=== PATIENT | male | born 1965 | race Caucasian/White ===

== ENCOUNTER 2017-07-28 11:35 | Inpatient (IN) ==
[2017-07-28] MEDS ORDERED: SODIUM CHLORIDE 0.9% 1,000 ML IV STA (13:38)
[2017-07-28] MEDS ORDERED: PANTOPRAZOLE 40 MG VIAL IV STA (13:38)
[2017-07-28 14:42] LABS: Basophils % 0.1 % (0.0-0.8); Immature Granulocytes % 0.9 %; Immature Granulocytes Absolute 0.13 #; Lymphocytes # 1.8 10*3/uL (1.4-4.0); Lymphocytes % 13.4 % (21.2-54.2); Mean Corpuscular HGB Conc 31.5 GM/DL (32-36); Mean Corpuscular Hemoglobin 28 PG (27-34); Mean Corpuscular Volume 88.8 FL (87-102); Mean Platelet Volume 9.8 FL (9.6-12.0); Monocytes # 0.9 10*3/uL (0.11-0.8); Monocytes % 6.9 % (1.7-12.7); Neutrophils # 10.8 10*3/uL (1.4-7.4); Neutrophils % 78.7 % (38.7-73.9); Platelet Count 639 T/CUMM (130-400); Red Blood Count 1.61 MC/CUMM (3.8-5.5); Red Cell Distribution Width 16.8 % (9.3-17.3); White Blood Count 13.7 T/CUMM (4-12)
[2017-07-28 14:48] LABS: Hematocrit 14.3 VOL% (42.0-52.0); Hemoglobin 4.5 GM/DL (14.0-18.0)
[2017-07-28] MEDS ORDERED: SODIUM CHLORIDE 0.9% 1,000 ML IV PRN (14:50)
[2017-07-28 15:02] LABS: PT Patient Result 10.7 SECS
[2017-07-28 15:04] LABS: Alanine Aminotransferase 9 U/L (16-61); Albumin 2.2 G/DL (3.4-5.0); Alkaline Phosphatase 55 U/L (45-117); Aspartate Amino Transferase 7 U/L (0-37); Bilirubin,Total < 0.39 MG/DL (0.2-1.0); Blood Urea Nitrogen 26 MG/DL (7-18); Calcium 8.1 MG/DL (8.5-10.1); Glucose 153 MG/DL (74-106); Potassium 4.6 MMOL/L (3.5-5.1); Sodium 136 MMOL/L (136-145)
[2017-07-28] MEDS ORDERED: PANTOPRAZOLE 40 MG VIAL IV ONE (16:07)
[2017-07-28] MEDS ORDERED: ONDANSETRON 4 MG/2 ML VIAL IV PRN (16:11)
[2017-07-28] MEDS ORDERED: DEXTROSE 50% 25 GM/50 ML VIAL IV PRN (16:16)
[2017-07-28] MEDS ORDERED: GLUCAGON 1 MG VIAL IM PRN (16:16)
[2017-07-28] MEDS: SODIUM CHLORIDE 0.9% 1,000 ML IV SCH ×2 (16:59→19:20)
[2017-07-28] MEDS ORDERED: PNEUMOCOCCAL VACCINE (23 VALENT) 0.5 ML VIAL IM ONE (17:16)
[2017-07-28] MEDS ORDERED: INFLUENZA VIRUS VACCINE 0.5 ML SYRINGE IM ONE (17:16)
[2017-07-28] MEDS: NICOTINE 21 MG/24 HR PATCH TRANSDERM SCH (17:22)
[2017-07-28] MEDS: MORPHINE 2 MG/1 ML SYRINGE IV PRN ×2 (17:23→21:30)
[2017-07-28] MEDS: PANTOPRAZOLE INJ 200 MG in SODIUM CHLORIDE 0.9% 250 ML IV SCH (17:24)
[2017-07-28] MEDS: INSULIN REGULAR 100 UNIT/ML SUBCUT SCH ×2 (19:59→23:42)
[2017-07-28] MEDS ORDERED: KETOROLAC 15 MG/1 ML VIAL IM PRN (20:02)
[2017-07-28] MEDS ORDERED: ACETAMINOPHEN 650 MG SUPP RECTAL PRN (20:04)
[2017-07-29 01:51] LABS: Hemoglobin 5.7 GM/DL (14.0-18.0)
[2017-07-29 01:52] LABS: Hematocrit 17.6 VOL% (42.0-52.0)
[2017-07-29 01:53] LABS: Hematocrit 17.6 VOL% (42.0-52.0); Hemoglobin 5.7 GM/DL (14.0-18.0)
[2017-07-29] MEDS: MORPHINE 2 MG/1 ML SYRINGE IV PRN ×2 (02:08→06:17)
[2017-07-29 03:00] LABS: Hematocrit 20.2 VOL% (42.0-52.0); Hemoglobin 6.7 GM/DL (14.0-18.0)
[2017-07-29] MEDS: SODIUM CHLORIDE 0.9% 1,000 ML IV SCH ×3 (03:30→19:30)
[2017-07-29] MEDS: INSULIN REGULAR 100 UNIT/ML SUBCUT SCH ×4 (06:12→23:16)
[2017-07-29 08:18] LABS: Hematocrit 20.5 VOL% (42.0-52.0); Hemoglobin 6.8 GM/DL (14.0-18.0)
[2017-07-29] MEDS: NICOTINE 21 MG/24 HR PATCH TRANSDERM SCH (10:11)
[2017-07-29] MEDS: MORPHINE 10 MG/1 ML VIAL IV PRN ×3 (10:33→21:01)
[2017-07-29] MEDS: LORazepam 2 MG/1 ML VIAL IV PRN ×2 (11:01→21:02)
[2017-07-29 15:36] LABS: Hematocrit 22.5 VOL% (42.0-52.0); Hemoglobin 7.3 GM/DL (14.0-18.0)
[2017-07-30 00:15] LABS: Hematocrit 20.3 VOL% (42.0-52.0); Hemoglobin 6.7 GM/DL (14.0-18.0)
[2017-07-30] MEDS: MORPHINE 10 MG/1 ML VIAL IV PRN ×4 (01:39→18:07)
[2017-07-30] MEDS: PANTOPRAZOLE INJ 200 MG in SODIUM CHLORIDE 0.9% 250 ML IV SCH (02:40)
[2017-07-30] MEDS: SODIUM CHLORIDE 0.9% 1,000 ML IV SCH ×2 (03:40→13:56)
[2017-07-30] MEDS: INSULIN REGULAR 100 UNIT/ML SUBCUT SCH ×3 (06:24→18:23)
[2017-07-30 07:46] LABS: Hematocrit 21.9 VOL% (42.0-52.0); Hemoglobin 7.2 GM/DL (14.0-18.0)
[2017-07-30 08:05] LABS: Calcium 7.5 MG/DL (8.5-10.1); Osmolality,Calculated 278.5 MOS/KG (273-304); Potassium 3.9 MMOL/L (3.5-5.1)
[2017-07-30] MEDS: NICOTINE 21 MG/24 HR PATCH TRANSDERM SCH (08:57)
[2017-07-30] MEDS: LORazepam 2 MG/1 ML VIAL IV PRN ×3 (08:58→22:06)
[2017-07-30] MEDS ORDERED: SODIUM CHLORIDE 0.9% 1,000 ML IV SCH (10:30)
[2017-07-30] MEDS ORDERED: ETOMIDATE 20 MG/10 ML VIAL IV ONE (12:00)
[2017-07-30] MEDS ORDERED: LIDOCAINE 2% 5 ML VIAL ONE (12:00)
[2017-07-30 13:41] LABS: Basophils % 0.4 % (0.0-0.8); Hematocrit 23.3 VOL% (42.0-52.0); Hemoglobin 7.6 GM/DL (14.0-18.0); Immature Granulocytes % 0.7 %; Immature Granulocytes Absolute 0.08 #; Lymphocytes # 1.4 10*3/uL (1.4-4.0); Lymphocytes % 12.7 % (21.2-54.2); Mean Corpuscular HGB Conc 32.6 GM/DL (32-36); Mean Corpuscular Hemoglobin 29 PG (27-34); Mean Corpuscular Volume 89.6 FL (87-102); Mean Platelet Volume 9.8 FL (9.6-12.0); Monocytes # 1.1 10*3/uL (0.11-0.8); Monocytes % 10.2 % (1.7-12.7); Neutrophils # 8.4 10*3/uL (1.4-7.4); Platelet Count 415 T/CUMM (130-400); Red Cell Distribution Width 15.6 % (9.3-17.3)
[2017-07-30] MEDS: PANTOPRAZOLE 40 MG VIAL IV SCH (20:46)
[2017-07-30 22:22] LABS: Hematocrit 27.9 VOL% (42.0-52.0)
[2017-07-30 22:23] LABS: Hemoglobin 8.9 GM/DL (14.0-18.0)
[2017-07-31] MEDS: INSULIN REGULAR 100 UNIT/ML SUBCUT SCH ×5 (00:25→23:16)
[2017-07-31] MEDS: MORPHINE 10 MG/1 ML VIAL IV PRN ×2 (02:30→08:02)
[2017-07-31] MEDS: PANTOPRAZOLE 40 MG VIAL IV SCH ×2 (08:04→21:48)
[2017-07-31] MEDS: NICOTINE 21 MG/24 HR PATCH TRANSDERM SCH (08:13)
[2017-07-31] MEDS: PREGABALIN 75 MG CAPSULE PO SCH ×2 (09:48→21:48)
[2017-07-31 10:04] LABS: Hematocrit 25.3 VOL% (42.0-52.0); Hemoglobin 8.4 GM/DL (14.0-18.0)
[2017-07-31] MEDS: traMADol 50 MG TABLET PO PRN (15:14)
[2017-07-31 15:17] LABS: Hematocrit 26.8 VOL% (42.0-52.0); Hemoglobin 8.5 GM/DL (14.0-18.0)
[2017-07-31] MEDS: LORazepam 0.5 MG TABLET PO PRN (21:48)
[2017-08-01 08:05] LABS: Hematocrit 22.6 VOL% (42.0-52.0); Hemoglobin 7.5 GM/DL (14.0-18.0)
[2017-08-01] MEDS: LORazepam 0.5 MG TABLET PO PRN ×2 (08:43→20:51)
[2017-08-01] MEDS: PREGABALIN 75 MG CAPSULE PO SCH ×2 (08:43→20:51)
[2017-08-01] MEDS: PANTOPRAZOLE 40 MG VIAL IV SCH ×2 (08:43→20:52)
[2017-08-01] MEDS: NICOTINE 21 MG/24 HR PATCH TRANSDERM SCH (08:44)
[2017-08-01] MEDS: INSULIN REGULAR 100 UNIT/ML SUBCUT SCH ×3 (08:47→18:49)
[2017-08-01] MEDS ORDERED: SODIUM CHLORIDE 0.9% 1,000 ML IV PRN (09:43)
[2017-08-01] MEDS: traMADol 50 MG TABLET PO PRN (14:46)
[2017-08-01 16:13] LABS: Hemoglobin 8.2 GM/DL (14.0-18.0)
[2017-08-02] MEDS: INSULIN REGULAR 100 UNIT/ML SUBCUT SCH ×3 (01:36→12:21)
[2017-08-02 05:33] LABS: Hematocrit 24.9 VOL% (42.0-52.0); Hemoglobin 7.9 GM/DL (14.0-18.0)
[2017-08-02] MEDS: PANTOPRAZOLE 40 MG VIAL IV SCH (09:17)
[2017-08-02] MEDS: NICOTINE 21 MG/24 HR PATCH TRANSDERM SCH (09:17)
[2017-08-02] MEDS ORDERED: PROPOFOL 200 MG/20 ML VIAL IV ONE (11:05)
[2017-08-02] MEDS ORDERED: LIDOCAINE 2% 5 ML VIAL ONE (11:05)
[2017-08-02] MEDS: PREGABALIN 75 MG CAPSULE PO SCH (12:14)
[2017-08-02] MEDS: LORazepam 0.5 MG TABLET PO PRN (12:15)
[2017-08-02 12:23] VITALS: BP 127/78
== END 2017-08-02 15:30 | disposition home or self-care (01) | DRG 378 ==
LOC: N.ED 11:35 → SUATTDRO 15:15 → N.EDINP 15:15 → N.CC 16:27 → N.2E 07-31 14:36
PROVIDERS: ADMIT Hospitalist; ATTEND Internal Medicine

== ENCOUNTER 2017-08-11 17:08 | Inpatient (IN) ==
[2017-08-11 18:25] LABS: Basophils % 0.2 % (0.0-0.8); Hematocrit 29.3 VOL% (42.0-52.0); Hemoglobin 9.2 GM/DL (14.0-18.0); Immature Granulocytes % 0.9 %; Immature Granulocytes Absolute 0.14 #; Lymphocytes # 1.4 10*3/uL (1.4-4.0); Lymphocytes % 9.1 % (21.2-54.2); Mean Corpuscular HGB Conc 31.4 GM/DL (32-36); Mean Corpuscular Hemoglobin 27 PG (27-34); Mean Corpuscular Volume 87.2 FL (87-102); Mean Platelet Volume 9.3 FL (9.6-12.0); Monocytes # 0.9 10*3/uL (0.11-0.8); Monocytes % 6.1 % (1.7-12.7); Neutrophils # 12.4 10*3/uL (1.4-7.4); Neutrophils % 83.7 % (38.7-73.9); Platelet Count 776 T/CUMM (130-400); Red Blood Count 3.36 MC/CUMM (3.8-5.5); White Blood Count 14.9 T/CUMM (4-12)
[2017-08-11] MEDS ORDERED: DEXTROSE 50% 25 GM/50 ML VIAL IV PRN (18:32)
[2017-08-11] MEDS ORDERED: GLUCAGON 1 MG VIAL IM PRN (18:32)
[2017-08-11 18:49] LABS: Lactic Acid 0.8 MMOL/L (0.4-2.0)
[2017-08-11 18:53] LABS: Bilirubin,Total 0.6 MG/DL (0.2-1.0); Osmolality,Calculated 267.1 MOS/KG (273-304); Potassium 3.9 MMOL/L (3.5-5.1); Total Protein 5.7 G/DL (6.4-8.3)
[2017-08-11] MEDS: MORPHINE 2 MG/1 ML SYRINGE IV PRN (20:49)
[2017-08-11] MEDS: SODIUM CHLOR 0.9% KCL 40 MEQ 40 MEQ/1,000 ML BAG IV SCH (20:50)
[2017-08-11] MEDS: INSULIN REGULAR 100 UNIT/ML SUBCUT SCH (20:50)
[2017-08-11] MEDS: PANTOPRAZOLE 40 MG TABLET PO SCH (20:50)
[2017-08-11] MEDS: PREGABALIN 75 MG CAPSULE PO SCH (20:50)
[2017-08-11 21:22] LABS: Apearance,Urine CLEAR (Clear); Bilirubin,Urine Negative (Negative); Blood, Urine Negative (Negative); Glucose,Urine (UA) Negative (Negative); Ketones,Urine Negative (Negative); Nitrite,Urine Negative (Negative); Protein,Urine Negative; RBC,Urine <1 /HPF (0-4); Squamous Epithelial Cell,Urine Occasional /HPF (0-10); Urine Color Yellow (Yellow); Urine Specific Gravity 1.047 (1.001-1.035); WBC,Urine 1 /HPF (0-6)
[2017-08-11] MEDS: traMADol 50 MG TABLET PO PRN (23:05)
[2017-08-11] MEDS: PIPERACILLIN/TAZOBACTAM 3,375 MG in SODIUM CHLORIDE 0.9% 100 ML IV SCH (23:25)
[2017-08-12] MEDS: MORPHINE 2 MG/1 ML SYRINGE IV PRN ×2 (00:25→05:01)
[2017-08-12] MEDS ORDERED: HYDROmorphone 2 MG/1 ML VIAL IV ONE (01:30)
[2017-08-12 04:41] LABS: Basophils % 0.2 % (0.0-0.8); Hematocrit 27.3 VOL% (42.0-52.0); Immature Granulocytes % 0.5 %; Immature Granulocytes Absolute 0.07 #; Lymphocytes # 1.5 10*3/uL (1.4-4.0); Mean Corpuscular Hemoglobin 28 PG (27-34); Mean Corpuscular Volume 84.5 FL (87-102); Mean Platelet Volume 9.7 FL (9.6-12.0); Monocytes % 7.3 % (1.7-12.7); Neutrophils # 10.7 10*3/uL (1.4-7.4); Platelet Count 681 T/CUMM (130-400); Red Blood Count 3.23 MC/CUMM (3.8-5.5); Red Cell Distribution Width 16.1 % (9.3-17.3); White Blood Count 13.2 T/CUMM (4-12)
[2017-08-12 05:04] LABS: Calcium 7.9 MG/DL (8.5-10.1); Osmolality,Calculated 266.2 MOS/KG (273-304); Potassium 4.1 MMOL/L (3.5-5.1)
[2017-08-12] MEDS: traMADol 50 MG TABLET PO PRN ×2 (06:13→23:17)
[2017-08-12] MEDS: SODIUM CHLOR 0.9% KCL 40 MEQ 40 MEQ/1,000 ML BAG IV SCH ×3 (07:38→22:03)
[2017-08-12] MEDS: HYDROmorphone 2 MG/1 ML VIAL IV PRN ×4 (08:22→22:02)
[2017-08-12] MEDS: PIPERACILLIN/TAZOBACTAM 3,375 MG in SODIUM CHLORIDE 0.9% 100 ML IV SCH ×3 (08:25→23:13)
[2017-08-12] MEDS: INSULIN REGULAR 100 UNIT/ML SUBCUT SCH ×4 (08:32→20:09)
[2017-08-12] MEDS: metFORMIN 500 MG TABLET PO SCH ×2 (08:33→16:37)
[2017-08-12] MEDS: PREGABALIN 75 MG CAPSULE PO SCH ×2 (08:33→20:09)
[2017-08-12] MEDS: PANTOPRAZOLE 40 MG TABLET PO SCH ×2 (08:33→20:09)
[2017-08-13] MEDS: HYDROmorphone 2 MG/1 ML VIAL IV PRN ×6 (01:32→21:52)
[2017-08-13] MEDS: SODIUM CHLOR 0.9% KCL 40 MEQ 40 MEQ/1,000 ML BAG IV SCH (05:38)
[2017-08-13] MEDS: INSULIN REGULAR 100 UNIT/ML SUBCUT SCH ×4 (08:28→20:26)
[2017-08-13] MEDS: PIPERACILLIN/TAZOBACTAM 3,375 MG in SODIUM CHLORIDE 0.9% 100 ML IV SCH ×3 (08:29→23:16)
[2017-08-13] MEDS: PANTOPRAZOLE 40 MG TABLET PO SCH ×2 (09:00→20:42)
[2017-08-13] MEDS: PREGABALIN 75 MG CAPSULE PO SCH ×2 (09:00→20:41)
[2017-08-13] MEDS: metFORMIN 500 MG TABLET PO SCH (09:13)
[2017-08-13] MEDS ORDERED: DIAZEPAM 5 MG TABLET PO ONE (09:21)
[2017-08-13 09:22] LABS: Basophils % 0.2 % (0.0-0.8); Hematocrit 33.3 VOL% (42.0-52.0); Hemoglobin 10.6 GM/DL (14.0-18.0); Immature Granulocytes % 0.9 %; Immature Granulocytes Absolute 0.16 #; Lymphocytes # 1.6 10*3/uL (1.4-4.0); Lymphocytes % 8.7 % (21.2-54.2); Mean Corpuscular HGB Conc 31.8 GM/DL (32-36); Mean Corpuscular Hemoglobin 28 PG (27-34); Mean Corpuscular Volume 86.9 FL (87-102); Mean Platelet Volume 9.1 FL (9.6-12.0); Monocytes # 1.3 10*3/uL (0.11-0.8); Neutrophils # 15.1 10*3/uL (1.4-7.4); Neutrophils % 83.2 % (38.7-73.9); Platelet Count 873 T/CUMM (130-400); Red Blood Count 3.83 MC/CUMM (3.8-5.5); Red Cell Distribution Width 16.2 % (9.3-17.3); White Blood Count 18.2 T/CUMM (4-12)
[2017-08-13] MEDS ORDERED: SODIUM CHLORIDE 0.45% 1,000 ML IV SCH (09:30)
[2017-08-13 09:41] LABS: Osmolality,Calculated 259.8 MOS/KG (273-304); Potassium 4.3 MMOL/L (3.5-5.1)
[2017-08-13 10:05] LABS: INR 1.1; PT Patient Result 11.9 SECS
[2017-08-13] MEDS ORDERED: MIDAZOLAM 2 MG/2 ML VIAL IV ONE (14:00)
[2017-08-13] MEDS ORDERED: fentaNYL 100 MCG/2 ML VIAL IV ONE (14:00)
[2017-08-13] MEDS ORDERED: MIDAZOLAM 2 MG/2 ML VIAL ONE (15:43)
[2017-08-13] MEDS: LORazepam 0.5 MG TABLET PO PRN (20:42)
[2017-08-14] MEDS: ONDANSETRON 4 MG/2 ML VIAL IV PRN (02:47)
[2017-08-14] MEDS: HYDROmorphone 2 MG/1 ML VIAL IV PRN ×5 (02:47→21:17)
[2017-08-14 05:06] LABS: Basophils % 0.2 % (0.0-0.8); Hematocrit 32.8 VOL% (42.0-52.0); Hemoglobin 10.1 GM/DL (14.0-18.0); Immature Granulocytes % 1.1 %; Immature Granulocytes Absolute 0.16 #; Lymphocytes # 1.3 10*3/uL (1.4-4.0); Lymphocytes % 8.8 % (21.2-54.2); Mean Corpuscular HGB Conc 30.8 GM/DL (32-36); Mean Corpuscular Hemoglobin 27 PG (27-34); Mean Corpuscular Volume 86.5 FL (87-102); Mean Platelet Volume 10.1 FL (9.6-12.0); Monocytes # 1.2 10*3/uL (0.11-0.8); Monocytes % 7.9 % (1.7-12.7); Neutrophils # 12.4 10*3/uL (1.4-7.4); Platelet Count 677 T/CUMM (130-400); Red Blood Count 3.79 MC/CUMM (3.8-5.5); Red Cell Distribution Width 16.3 % (9.3-17.3); White Blood Count 15.1 T/CUMM (4-12)
[2017-08-14 05:35] LABS: Calcium 8.2 MG/DL (8.5-10.1); Osmolality,Calculated 260.7 MOS/KG (273-304); Potassium 5.2 MMOL/L (3.5-5.1)
[2017-08-14] MEDS: SODIUM CHLOR 0.9% KCL 40 MEQ 40 MEQ/1,000 ML BAG IV SCH ×4 (06:22→22:46)
[2017-08-14] MEDS: INSULIN REGULAR 100 UNIT/ML SUBCUT SCH ×4 (07:58→22:47)
[2017-08-14] MEDS: PANTOPRAZOLE 40 MG TABLET PO SCH ×2 (08:34→20:09)
[2017-08-14] MEDS: PREGABALIN 75 MG CAPSULE PO SCH ×2 (08:34→20:09)
[2017-08-14] MEDS: PIPERACILLIN/TAZOBACTAM 3,375 MG in SODIUM CHLORIDE 0.9% 100 ML IV SCH ×2 (08:35→16:24)
[2017-08-14] MEDS: LORazepam 0.5 MG TABLET PO PRN ×2 (09:11→19:50)
[2017-08-14] MEDS: traMADol 50 MG TABLET PO PRN ×2 (09:54→19:51)
[2017-08-14] MEDS ORDERED: VANCOMYCIN INJ 1,000 MG in SODIUM CHLORIDE 0.9% 250 ML IV SCH (10:30)
[2017-08-14] MEDS: VANCOMYCIN INJ 1,750 MG in SODIUM CHLORIDE 0.9% 500 ML IV SCH ×2 (13:00→20:09)
[2017-08-15] MEDS: HYDROmorphone 2 MG/1 ML VIAL IV PRN ×8 (00:19→23:17)
[2017-08-15] MEDS: PIPERACILLIN/TAZOBACTAM 3,375 MG in SODIUM CHLORIDE 0.9% 100 ML IV SCH ×4 (00:26→23:20)
[2017-08-15] MEDS: SODIUM CHLOR 0.9% KCL 40 MEQ 40 MEQ/1,000 ML BAG IV SCH ×2 (04:19→13:35)
[2017-08-15] MEDS: VANCOMYCIN INJ 1,750 MG in SODIUM CHLORIDE 0.9% 500 ML IV SCH ×2 (04:47→13:35)
[2017-08-15 06:38] LABS: Basophils # 0.1 10*3/uL (0.0-0.2); Basophils % 0.3 % (0.0-0.8); Hematocrit 31.2 VOL% (42.0-52.0); Hemoglobin 9.7 GM/DL (14.0-18.0); Immature Granulocytes % 1.1 %; Immature Granulocytes Absolute 0.16 #; Lymphocytes # 1.2 10*3/uL (1.4-4.0); Lymphocytes % 7.9 % (21.2-54.2); Mean Corpuscular HGB Conc 31.1 GM/DL (32-36); Mean Corpuscular Hemoglobin 27 PG (27-34); Mean Corpuscular Volume 87.4 FL (87-102); Mean Platelet Volume 10.4 FL (9.6-12.0); Monocytes # 1.4 10*3/uL (0.11-0.8); Monocytes % 9.2 % (1.7-12.7); NRBC # 0.03 10*3/uL; Neutrophils # 12.3 10*3/uL (1.4-7.4); Neutrophils % 81.5 % (38.7-73.9); Platelet Count 536 T/CUMM (130-400); Red Blood Count 3.57 MC/CUMM (3.8-5.5); Red Cell Distribution Width 16.3 % (9.3-17.3)
[2017-08-15 06:56] LABS: Calcium 8.1 MG/DL (8.5-10.1); Osmolality,Calculated 262.4 MOS/KG (273-304); Potassium 4.9 MMOL/L (3.5-5.1)
[2017-08-15] MEDS: LORazepam 0.5 MG TABLET PO PRN ×2 (08:09→20:29)
[2017-08-15] MEDS: PREGABALIN 75 MG CAPSULE PO SCH ×2 (08:09→20:18)
[2017-08-15] MEDS: PANTOPRAZOLE 40 MG TABLET PO SCH ×2 (08:09→20:18)
[2017-08-15] MEDS: INSULIN REGULAR 100 UNIT/ML SUBCUT SCH ×4 (08:10→20:13)
[2017-08-15] MEDS: ONDANSETRON 4 MG/2 ML VIAL IV PRN (08:10)
[2017-08-16] MEDS: traMADol 50 MG TABLET PO PRN (01:33)
[2017-08-16] MEDS: HYDROmorphone 2 MG/1 ML VIAL IV PRN ×4 (02:43→22:44)
[2017-08-16 06:16] LABS: Calcium 8.1 MG/DL (8.5-10.1); Osmolality,Calculated 265.2 MOS/KG (273-304); Potassium 5.2 MMOL/L (3.5-5.1)
[2017-08-16] MEDS: INSULIN REGULAR 100 UNIT/ML SUBCUT SCH ×4 (08:19→21:02)
[2017-08-16] MEDS ORDERED: VANCOMYCIN INJ 1,750 MG in SODIUM CHLORIDE 0.9% 500 ML IV PRN (08:30)
[2017-08-16 08:47] LABS: Basophils % 0.2 % (0.0-0.8); Hematocrit 28.1 VOL% (42.0-52.0); Hemoglobin 8.8 GM/DL (14.0-18.0); Immature Granulocytes Absolute 0.13 #; Lymphocytes # 1.2 10*3/uL (1.4-4.0); Mean Corpuscular HGB Conc 31.3 GM/DL (32-36); Mean Corpuscular Hemoglobin 27 PG (27-34); Mean Corpuscular Volume 87.5 FL (87-102); Mean Platelet Volume 9.7 FL (9.6-12.0); Monocytes # 1.3 10*3/uL (0.11-0.8); Monocytes % 9.7 % (1.7-12.7); Neutrophils # 10.9 10*3/uL (1.4-7.4); Neutrophils % 80.1 % (38.7-73.9); Platelet Count 659 T/CUMM (130-400); Red Blood Count 3.21 MC/CUMM (3.8-5.5); Red Cell Distribution Width 16.3 % (9.3-17.3); White Blood Count 13.6 T/CUMM (4-12)
[2017-08-16] MEDS: PANTOPRAZOLE 40 MG TABLET PO SCH ×2 (08:50→21:02)
[2017-08-16] MEDS: PREGABALIN 75 MG CAPSULE PO SCH ×2 (08:50→21:02)
[2017-08-16] MEDS: PIPERACILLIN/TAZOBACTAM 3,375 MG in SODIUM CHLORIDE 0.9% 100 ML IV SCH ×2 (08:51→16:34)
[2017-08-16] MEDS: LORazepam 0.5 MG TABLET PO PRN ×2 (08:52→21:02)
[2017-08-16] MEDS: SODIUM CHLOR 0.9% KCL 40 MEQ 40 MEQ/1,000 ML BAG IV SCH (09:18)
[2017-08-16] MEDS ORDERED: VANCOMYCIN INJ 1,750 MG in SODIUM CHLORIDE 0.9% 500 ML IV ONE (10:00)
[2017-08-16] MEDS: SODIUM CHLORIDE 0.9% 1,000 ML IV SCH (16:04)
[2017-08-16] MEDS: metFORMIN 500 MG TABLET PO SCH (16:34)
[2017-08-17] MEDS: PIPERACILLIN/TAZOBACTAM 3,375 MG in SODIUM CHLORIDE 0.9% 100 ML IV SCH ×4 (00:54→21:04)
[2017-08-17] MEDS: HYDROmorphone 2 MG/1 ML VIAL IV PRN ×5 (04:57→20:56)
[2017-08-17] MEDS: SODIUM CHLORIDE 0.9% 1,000 ML IV SCH ×3 (05:00→20:43)
[2017-08-17 05:24] LABS: Basophils % 0.3 % (0.0-0.8); Hematocrit 26.1 VOL% (42.0-52.0); Hemoglobin 8.5 GM/DL (14.0-18.0); Immature Granulocytes Absolute 0.15 #; Lymphocytes # 1.2 10*3/uL (1.4-4.0); Lymphocytes % 8.6 % (21.2-54.2); Mean Corpuscular HGB Conc 32.6 GM/DL (32-36); Mean Corpuscular Hemoglobin 28 PG (27-34); Mean Corpuscular Volume 86.7 FL (87-102); Mean Platelet Volume 9.4 FL (9.6-12.0); Monocytes # 1.3 10*3/uL (0.11-0.8); Monocytes % 9.1 % (1.7-12.7); Neutrophils # 11.7 10*3/uL (1.4-7.4); Platelet Count 801 T/CUMM (130-400); Red Blood Count 3.01 MC/CUMM (3.8-5.5); Red Cell Distribution Width 16.5 % (9.3-17.3); White Blood Count 14.5 T/CUMM (4-12)
[2017-08-17 05:55] LABS: Calcium 7.9 MG/DL (8.5-10.1); Osmolality,Calculated 267.1 MOS/KG (273-304)
[2017-08-17] MEDS: INSULIN REGULAR 100 UNIT/ML SUBCUT SCH ×4 (08:10→21:00)
[2017-08-17] MEDS: PANTOPRAZOLE 40 MG TABLET PO SCH ×2 (08:43→20:32)
[2017-08-17] MEDS: PREGABALIN 75 MG CAPSULE PO SCH ×2 (08:43→20:32)
[2017-08-17] MEDS: metFORMIN 500 MG TABLET PO SCH (08:49)
[2017-08-17] MEDS: LORazepam 0.5 MG TABLET PO PRN ×2 (09:06→20:33)
[2017-08-17] MEDS ORDERED: CLINDAMYCIN INJ 600 MG in PREMIX 1 EACH IV SCH (11:00)
[2017-08-17] MEDS: HEPARIN 5,000 UNIT/1 ML VIAL SUBCUT SCH ×2 (11:15→20:33)
[2017-08-17] MEDS ORDERED: MAGNESIUM HYDROXIDE SUSP 30 ML UDCUP PO ONE (11:33)
[2017-08-17] MEDS ORDERED: AMPICILLIN/SULBACTAM 3,000 MG in SODIUM CHLORIDE 0.9% 100 ML IV SCH (15:00)
[2017-08-18] MEDS: HEPARIN 5,000 UNIT/1 ML VIAL SUBCUT SCH ×3 (04:04→18:32)
[2017-08-18 05:41] LABS: Calcium 8.5 MG/DL (8.5-10.1); Osmolality,Calculated 273.7 MOS/KG (273-304); Potassium 4.8 MMOL/L (3.5-5.1)
[2017-08-18 06:07] LABS: Basophils # 0.1 10*3/uL (0.0-0.2); Basophils % 0.4 % (0.0-0.8); Hematocrit 26.2 VOL% (42.0-52.0); Hemoglobin 8.1 GM/DL (14.0-18.0); Immature Granulocytes % 1.7 %; Immature Granulocytes Absolute 0.24 #; Lymphocytes # 1.2 10*3/uL (1.4-4.0); Lymphocytes % 8.6 % (21.2-54.2); Mean Corpuscular HGB Conc 30.9 GM/DL (32-36); Mean Corpuscular Hemoglobin 28 PG (27-34); Mean Corpuscular Volume 89.1 FL (87-102); Mean Platelet Volume 9.7 FL (9.6-12.0); Monocytes # 1.1 10*3/uL (0.11-0.8); Monocytes % 7.4 % (1.7-12.7); Neutrophils # 11.7 10*3/uL (1.4-7.4); Neutrophils % 81.9 % (38.7-73.9); Platelet Count 925 T/CUMM (130-400); Red Blood Count 2.94 MC/CUMM (3.8-5.5); Red Cell Distribution Width 16.3 % (9.3-17.3); White Blood Count 14.3 T/CUMM (4-12)
[2017-08-18] MEDS: PIPERACILLIN/TAZOBACTAM 3,375 MG in SODIUM CHLORIDE 0.9% 100 ML IV SCH ×3 (07:29→21:30)
[2017-08-18] MEDS: SODIUM CHLORIDE 0.9% 1,000 ML IV SCH ×2 (07:57→12:35)
[2017-08-18] MEDS: PREGABALIN 75 MG CAPSULE PO SCH ×2 (08:27→21:08)
[2017-08-18] MEDS: PANTOPRAZOLE 40 MG TABLET PO SCH ×2 (08:28→21:08)
[2017-08-18] MEDS: HYDROmorphone 2 MG/1 ML VIAL IV PRN ×3 (08:28→21:09)
[2017-08-18] MEDS: LORazepam 0.5 MG TABLET PO PRN ×2 (08:35→21:08)
[2017-08-18] MEDS: INSULIN REGULAR 100 UNIT/ML SUBCUT SCH ×4 (08:58→21:05)
[2017-08-19] MEDS: HEPARIN 5,000 UNIT/1 ML VIAL SUBCUT SCH ×3 (02:45→19:12)
[2017-08-19] MEDS: SODIUM CHLORIDE 0.9% 1,000 ML IV SCH ×4 (03:12→16:05)
[2017-08-19] MEDS: PIPERACILLIN/TAZOBACTAM 3,375 MG in SODIUM CHLORIDE 0.9% 100 ML IV SCH ×3 (05:44→21:45)
[2017-08-19] MEDS: HYDROmorphone 2 MG/1 ML VIAL IV PRN ×3 (05:55→21:47)
[2017-08-19] MEDS: INSULIN REGULAR 100 UNIT/ML SUBCUT SCH ×4 (09:43→21:00)
[2017-08-19] MEDS: PANTOPRAZOLE 40 MG TABLET PO SCH ×2 (09:46→21:44)
[2017-08-19] MEDS: LORazepam 0.5 MG TABLET PO PRN ×2 (09:46→21:44)
[2017-08-19] MEDS: PREGABALIN 75 MG CAPSULE PO SCH ×2 (10:54→21:44)
[2017-08-19 16:28] LABS: Hepatitis B Surface Ag Quant < 0.10 Index; Hepatitis B Surface Ag Result Negative (Negative)
[2017-08-20] MEDS: traMADol 50 MG TABLET PO PRN (02:02)
[2017-08-20] MEDS: HEPARIN 5,000 UNIT/1 ML VIAL SUBCUT SCH ×3 (02:04→18:47)
[2017-08-20] MEDS: SODIUM CHLORIDE 0.9% 1,000 ML IV SCH ×4 (02:12→23:11)
[2017-08-20] MEDS: HYDROmorphone 2 MG/1 ML VIAL IV PRN ×5 (05:24→23:17)
[2017-08-20] MEDS: PIPERACILLIN/TAZOBACTAM 3,375 MG in SODIUM CHLORIDE 0.9% 100 ML IV SCH ×2 (05:35→18:46)
[2017-08-20 06:17] LABS: Osmolality,Calculated 279.4 MOS/KG (273-304); Potassium 4.8 MMOL/L (3.5-5.1)
[2017-08-20 06:55] LABS: Basophils % 0.4 % (0.0-0.8); Immature Granulocytes % 0.5 %; Immature Granulocytes Absolute 0.05 #; Lymphocytes # 1.5 10*3/uL (1.4-4.0); Lymphocytes % 14.5 % (21.2-54.2); Mean Corpuscular Hemoglobin 28 PG (27-34); Mean Corpuscular Volume 86.8 FL (87-102); Mean Platelet Volume 9.7 FL (9.6-12.0); Monocytes # 0.9 10*3/uL (0.11-0.8); Monocytes % 8.4 % (1.7-12.7); Neutrophils # 7.8 10*3/uL (1.4-7.4); Neutrophils % 76.2 % (38.7-73.9); Platelet Count 709 T/CUMM (130-400); Red Blood Count 2.88 MC/CUMM (3.8-5.5); Red Cell Distribution Width 16.5 % (9.3-17.3); White Blood Count 10.2 T/CUMM (4-12)
[2017-08-20] MEDS: INSULIN REGULAR 100 UNIT/ML SUBCUT SCH ×4 (08:21→20:57)
[2017-08-20] MEDS: PANTOPRAZOLE 40 MG TABLET PO SCH ×2 (10:08→20:57)
[2017-08-20] MEDS: PREGABALIN 75 MG CAPSULE PO SCH ×2 (10:08→20:57)
[2017-08-20] MEDS: LORazepam 0.5 MG TABLET PO PRN ×2 (10:11→21:04)
[2017-08-20] MEDS: DOCUSATE SODIUM 100 MG/10 ML UDCUP PO SCH ×2 (11:50→20:57)
[2017-08-20] MEDS: BISACODYL 10 MG SUPP RECTAL SCH ×2 (13:14→20:57)
[2017-08-20] MEDS: DAPTOmycin 500 MG in SODIUM CHLORIDE 0.9% 50 ML IV SCH (15:00)
[2017-08-21] MEDS: PIPERACILLIN/TAZOBACTAM 3,375 MG in SODIUM CHLORIDE 0.9% 100 ML IV SCH ×3 (00:56→17:04)
[2017-08-21] MEDS: HEPARIN 5,000 UNIT/1 ML VIAL SUBCUT SCH ×3 (03:19→18:40)
[2017-08-21] MEDS: HYDROmorphone 2 MG/1 ML VIAL IV PRN ×5 (05:44→21:21)
[2017-08-21 06:24] LABS: Basophils % 0.4 % (0.0-0.8); Hemoglobin 7.9 GM/DL (14.0-18.0); Immature Granulocytes % 0.7 %; Immature Granulocytes Absolute 0.07 #; Lymphocytes # 1.3 10*3/uL (1.4-4.0); Lymphocytes % 13.8 % (21.2-54.2); Mean Corpuscular HGB Conc 31.6 GM/DL (32-36); Mean Corpuscular Hemoglobin 27 PG (27-34); Mean Corpuscular Volume 86.5 FL (87-102); Mean Platelet Volume 9.8 FL (9.6-12.0); Monocytes # 0.8 10*3/uL (0.11-0.8); Neutrophils # 7.1 10*3/uL (1.4-7.4); Neutrophils % 76.1 % (38.7-73.9); Platelet Count 657 T/CUMM (130-400); Red Blood Count 2.89 MC/CUMM (3.8-5.5); Red Cell Distribution Width 16.6 % (9.3-17.3); White Blood Count 9.4 T/CUMM (4-12)
[2017-08-21 06:57] LABS: Calcium 8.5 MG/DL (8.5-10.1); Osmolality,Calculated 277.5 MOS/KG (273-304); Potassium 4.4 MMOL/L (3.5-5.1)
[2017-08-21] MEDS: INSULIN REGULAR 100 UNIT/ML SUBCUT SCH ×4 (08:33→21:20)
[2017-08-21] MEDS: NYSTATIN 500,000 UNIT/5 ML UDCUP SWISH/SWAL SCH ×4 (10:20→21:19)
[2017-08-21] MEDS: DOCUSATE SODIUM 100 MG/10 ML UDCUP PO SCH ×2 (10:20→21:27)
[2017-08-21] MEDS: PANTOPRAZOLE 40 MG TABLET PO SCH ×2 (10:20→21:20)
[2017-08-21] MEDS: LORazepam 0.5 MG TABLET PO PRN ×2 (10:20→21:27)
[2017-08-21] MEDS: PREGABALIN 75 MG CAPSULE PO SCH ×2 (10:20→21:20)
[2017-08-21] MEDS: BISACODYL 10 MG SUPP RECTAL SCH ×2 (10:21→21:20)
[2017-08-21] MEDS: SODIUM CHLORIDE 0.9% 1,000 ML IV SCH (13:29)
[2017-08-21] MEDS: DAPTOmycin 500 MG in SODIUM CHLORIDE 0.9% 50 ML IV SCH (13:54)
[2017-08-21 19:19] LABS: Hepatitis A Ab IgM Quant 0.11 Index; Hepatitis A Ab IgM Result Negative (Negative); Hepatitis B Core IgM Quant 0.26 Index; Hepatitis B Core IgM Result Negative (Negative); Hepatitis B Surface Ag Quant < 0.10 Index; Hepatitis B Surface Ag Result Negative (Negative); Hepatitis C Virus Ab Quant 0.08 Index; Hepatitis C Virus Ab Result Negative (Negative)
[2017-08-22] MEDS: HYDROmorphone 2 MG/1 ML VIAL IV PRN ×6 (00:28→21:36)
[2017-08-22] MEDS: PIPERACILLIN/TAZOBACTAM 3,375 MG in SODIUM CHLORIDE 0.9% 100 ML IV SCH ×3 (00:29→19:00)
[2017-08-22] MEDS: HEPARIN 5,000 UNIT/1 ML VIAL SUBCUT SCH ×3 (03:53→19:00)
[2017-08-22] MEDS: SODIUM CHLORIDE 0.9% 1,000 ML IV SCH ×2 (06:16→11:15)
[2017-08-22 07:06] LABS: Basophils % 0.5 % (0.0-0.8); Hemoglobin 7.1 GM/DL (14.0-18.0); Immature Granulocytes % 0.5 %; Immature Granulocytes Absolute 0.04 #; Lymphocytes # 1.5 10*3/uL (1.4-4.0); Lymphocytes % 19.2 % (21.2-54.2); Mean Corpuscular HGB Conc 32.3 GM/DL (32-36); Mean Corpuscular Hemoglobin 28 PG (27-34); Mean Corpuscular Volume 85.3 FL (87-102); Monocytes # 0.9 10*3/uL (0.11-0.8); Monocytes % 10.8 % (1.7-12.7); Neutrophils # 5.5 10*3/uL (1.4-7.4); Red Blood Count 2.58 MC/CUMM (3.8-5.5); Red Cell Distribution Width 16.8 % (9.3-17.3); White Blood Count 7.9 T/CUMM (4-12)
[2017-08-22 07:13] LABS: Platelet Count 513 T/CUMM (130-400)
[2017-08-22 07:32] LABS: Calcium 7.9 MG/DL (8.5-10.1); Osmolality,Calculated 274.8 MOS/KG (273-304); Potassium 4.3 MMOL/L (3.5-5.1)
[2017-08-22 07:40] LABS: Albumin 1.8 G/DL (3.4-5.0); Bilirubin,Direct 0.18 MG/DL (0.0-0.20); Bilirubin,Indirect 0.2 MG/DL (0.0-1.0); Bilirubin,Total 0.4 MG/DL (0.2-1.0); Total Protein 5.4 G/DL (6.4-8.3)
[2017-08-22] MEDS ORDERED: SODIUM CHLORIDE 0.9% 1,000 ML IV PRN (07:44)
[2017-08-22] MEDS: INSULIN REGULAR 100 UNIT/ML SUBCUT SCH ×4 (08:30→21:37)
[2017-08-22] MEDS: DOCUSATE SODIUM 100 MG/10 ML UDCUP PO SCH ×2 (09:40→21:37)
[2017-08-22] MEDS: BISACODYL 10 MG SUPP RECTAL SCH ×2 (09:40→21:37)
[2017-08-22 09:50] LABS: Neutrophils,Peritoneal Fluid 91 %
[2017-08-22] MEDS: PANTOPRAZOLE 40 MG TABLET PO SCH ×2 (09:52→21:37)
[2017-08-22] MEDS: LORazepam 0.5 MG TABLET PO PRN ×2 (09:52→22:01)
[2017-08-22] MEDS: PREGABALIN 75 MG CAPSULE PO SCH ×2 (09:53→21:37)
[2017-08-22] MEDS: NYSTATIN 500,000 UNIT/5 ML UDCUP SWISH/SWAL SCH ×4 (09:53→21:37)
[2017-08-22 09:55] LABS: RBC,Peritoneal Fluid 67 T/CUMM
[2017-08-23 00:49] LABS: Hemoglobin 8.1 GM/DL (14.0-18.0)
[2017-08-23] MEDS: ZALEPLON 5 MG CAPSULE PO PRN ×2 (00:52→21:52)
[2017-08-23] MEDS: PIPERACILLIN/TAZOBACTAM 3,375 MG in SODIUM CHLORIDE 0.9% 100 ML IV SCH ×3 (02:18→17:30)
[2017-08-23] MEDS: HYDROmorphone 2 MG/1 ML VIAL IV PRN ×5 (02:18→19:30)
[2017-08-23] MEDS: HEPARIN 5,000 UNIT/1 ML VIAL SUBCUT SCH ×3 (03:40→18:10)
[2017-08-23 05:26] LABS: Basophils # 0.1 10*3/uL (0.0-0.2); Basophils % 0.7 % (0.0-0.8); Hematocrit 25.5 VOL% (42.0-52.0); Immature Granulocytes % 0.4 %; Immature Granulocytes Absolute 0.03 #; Lymphocytes # 1.5 10*3/uL (1.4-4.0); Lymphocytes % 20.3 % (21.2-54.2); Mean Corpuscular HGB Conc 31.4 GM/DL (32-36); Mean Corpuscular Hemoglobin 28 PG (27-34); Mean Corpuscular Volume 87.6 FL (87-102); Mean Platelet Volume 10.1 FL (9.6-12.0); Monocytes # 0.8 10*3/uL (0.11-0.8); Monocytes % 10.2 % (1.7-12.7); Neutrophils # 5.1 10*3/uL (1.4-7.4); Neutrophils % 68.4 % (38.7-73.9); Platelet Count 522 T/CUMM (130-400); Red Blood Count 2.91 MC/CUMM (3.8-5.5); White Blood Count 7.5 T/CUMM (4-12)
[2017-08-23 06:01] LABS: Calcium 7.5 MG/DL (8.5-10.1); Osmolality,Calculated 280.4 MOS/KG (273-304); Potassium 4.3 MMOL/L (3.5-5.1)
[2017-08-23] MEDS: SODIUM CHLORIDE 0.9% 1,000 ML IV SCH ×3 (07:23→14:30)
[2017-08-23] MEDS: PREGABALIN 75 MG CAPSULE PO SCH ×2 (08:22→21:52)
[2017-08-23] MEDS: PANTOPRAZOLE 40 MG TABLET PO SCH ×2 (08:22→21:52)
[2017-08-23] MEDS: LORazepam 0.5 MG TABLET PO PRN ×2 (08:22→21:52)
[2017-08-23] MEDS: NYSTATIN 500,000 UNIT/5 ML UDCUP SWISH/SWAL SCH ×4 (08:23→21:52)
[2017-08-23] MEDS: INSULIN REGULAR 100 UNIT/ML SUBCUT SCH ×4 (08:25→21:53)
[2017-08-23] MEDS: BISACODYL 10 MG SUPP RECTAL SCH ×2 (08:25→21:54)
[2017-08-23] MEDS: DOCUSATE SODIUM 100 MG/10 ML UDCUP PO SCH ×2 (08:25→21:52)
[2017-08-24] MEDS: HYDROmorphone 2 MG/1 ML VIAL IV PRN ×5 (00:16→20:19)
[2017-08-24] MEDS: PIPERACILLIN/TAZOBACTAM 3,375 MG in SODIUM CHLORIDE 0.9% 100 ML IV SCH ×3 (01:02→18:03)
[2017-08-24] MEDS: HEPARIN 5,000 UNIT/1 ML VIAL SUBCUT SCH ×3 (03:19→18:04)
[2017-08-24 05:13] LABS: Basophils # 0.1 10*3/uL (0.0-0.2); Basophils % 0.9 % (0.0-0.8); Hematocrit 25.7 VOL% (42.0-52.0); Hemoglobin 7.9 GM/DL (14.0-18.0); Immature Granulocytes % 0.3 %; Immature Granulocytes Absolute 0.02 #; Lymphocytes # 1.5 10*3/uL (1.4-4.0); Lymphocytes % 22.3 % (21.2-54.2); Mean Corpuscular HGB Conc 30.7 GM/DL (32-36); Mean Corpuscular Hemoglobin 27 PG (27-34); Mean Platelet Volume 9.9 FL (9.6-12.0); Monocytes # 0.7 10*3/uL (0.11-0.8); Monocytes % 10.1 % (1.7-12.7); Neutrophils # 4.4 10*3/uL (1.4-7.4); Neutrophils % 66.4 % (38.7-73.9); Platelet Count 512 T/CUMM (130-400); Red Blood Count 2.92 MC/CUMM (3.8-5.5); Red Cell Distribution Width 16.4 % (9.3-17.3); White Blood Count 6.6 T/CUMM (4-12)
[2017-08-24 05:21] LABS: PT Patient Result 10.7 SECS; Partial Thromboplastin Time 31.5 SECS (0-40)
[2017-08-24 05:45] LABS: Calcium 7.7 MG/DL (8.5-10.1); Osmolality,Calculated 282.3 MOS/KG (273-304); Potassium 4.3 MMOL/L (3.5-5.1)
[2017-08-24] MEDS: SODIUM CHLORIDE 0.9% 1,000 ML IV SCH (08:00)
[2017-08-24] MEDS: INSULIN REGULAR 100 UNIT/ML SUBCUT SCH ×4 (08:24→20:22)
[2017-08-24] MEDS: DOCUSATE SODIUM 100 MG/10 ML UDCUP PO SCH ×2 (10:12→20:21)
[2017-08-24] MEDS: PANTOPRAZOLE 40 MG TABLET PO SCH ×2 (10:13→20:21)
[2017-08-24] MEDS: PREGABALIN 75 MG CAPSULE PO SCH ×2 (10:13→20:21)
[2017-08-24] MEDS: NYSTATIN 500,000 UNIT/5 ML UDCUP SWISH/SWAL SCH ×4 (10:13→20:20)
[2017-08-24] MEDS: LORazepam 0.5 MG TABLET PO PRN ×2 (10:13→20:27)
[2017-08-24] MEDS: BISACODYL 10 MG SUPP RECTAL SCH ×2 (10:18→20:22)
[2017-08-24] MEDS: guaiFENesin 200 MG/10 ML UDCUP PO PRN (10:42)
[2017-08-24] MEDS: ZALEPLON 5 MG CAPSULE PO PRN (20:20)
[2017-08-25] MEDS: PIPERACILLIN/TAZOBACTAM 3,375 MG in SODIUM CHLORIDE 0.9% 100 ML IV SCH ×3 (01:55→18:19)
[2017-08-25] MEDS: HEPARIN 5,000 UNIT/1 ML VIAL SUBCUT SCH ×3 (03:21→18:19)
[2017-08-25 03:31] LABS: Basophils # 0.1 10*3/uL (0.0-0.2); Basophils % 1.3 % (0.0-0.8); Hemoglobin 7.7 GM/DL (14.0-18.0); Immature Granulocytes % 0.5 %; Immature Granulocytes Absolute 0.03 #; Lymphocytes # 1.6 10*3/uL (1.4-4.0); Lymphocytes % 25.2 % (21.2-54.2); Mean Corpuscular HGB Conc 30.8 GM/DL (32-36); Mean Corpuscular Hemoglobin 27 PG (27-34); Mean Corpuscular Volume 87.7 FL (87-102); Mean Platelet Volume 9.9 FL (9.6-12.0); Monocytes # 0.7 10*3/uL (0.11-0.8); Monocytes % 10.2 % (1.7-12.7); Neutrophils % 62.8 % (38.7-73.9); Platelet Count 498 T/CUMM (130-400); Red Blood Count 2.85 MC/CUMM (3.8-5.5); Red Cell Distribution Width 16.5 % (9.3-17.3); White Blood Count 6.4 T/CUMM (4-12)
[2017-08-25 03:50] LABS: Calcium 7.2 MG/DL (8.5-10.1)
[2017-08-25] MEDS: SODIUM CHLORIDE 0.9% 1,000 ML IV SCH ×2 (04:58→13:30)
[2017-08-25] MEDS: INSULIN REGULAR 100 UNIT/ML SUBCUT SCH ×4 (07:59→20:21)
[2017-08-25] MEDS: NYSTATIN 500,000 UNIT/5 ML UDCUP SWISH/SWAL SCH ×4 (10:14→20:19)
[2017-08-25] MEDS: PANTOPRAZOLE 40 MG TABLET PO SCH ×2 (10:15→20:21)
[2017-08-25] MEDS: DOCUSATE SODIUM 100 MG/10 ML UDCUP PO SCH ×2 (10:15→20:20)
[2017-08-25] MEDS: LORazepam 0.5 MG TABLET PO PRN ×2 (10:15→20:21)
[2017-08-25] MEDS: PREGABALIN 75 MG CAPSULE PO SCH ×2 (10:15→20:21)
[2017-08-25] MEDS: HYDROmorphone 2 MG/1 ML VIAL IV PRN ×2 (10:19→13:32)
[2017-08-25] MEDS: BISACODYL 10 MG SUPP RECTAL SCH ×2 (10:28→20:21)
[2017-08-25] MEDS ORDERED: MAGNESIUM SULF RIDER 2 GM in PREMIX 1 EACH IV PRN (18:48)
[2017-08-25] MEDS ORDERED: MAGNESIUM SULF RIDER 4 GM in PREMIX 1 EACH IV PRN (18:48)
[2017-08-25] MEDS: ZALEPLON 5 MG CAPSULE PO PRN (20:20)
[2017-08-26] MEDS: PIPERACILLIN/TAZOBACTAM 3,375 MG in SODIUM CHLORIDE 0.9% 100 ML IV SCH ×3 (01:15→17:42)
[2017-08-26] MEDS: HEPARIN 5,000 UNIT/1 ML VIAL SUBCUT SCH ×3 (03:34→18:11)
[2017-08-26 05:17] LABS: Basophils # 0.1 10*3/uL (0.0-0.2); Hematocrit 28.5 VOL% (42.0-52.0); Hemoglobin 8.8 GM/DL (14.0-18.0); Immature Granulocytes % 0.5 %; Immature Granulocytes Absolute 0.03 #; Lymphocytes # 1.7 10*3/uL (1.4-4.0); Mean Corpuscular HGB Conc 30.9 GM/DL (32-36); Mean Corpuscular Hemoglobin 27 PG (27-34); Mean Corpuscular Volume 87.7 FL (87-102); Mean Platelet Volume 9.6 FL (9.6-12.0); Monocytes # 0.5 10*3/uL (0.11-0.8); Monocytes % 8.4 % (1.7-12.7); Neutrophils # 3.6 10*3/uL (1.4-7.4); Neutrophils % 61.1 % (38.7-73.9); Platelet Count 554 T/CUMM (130-400); Red Blood Count 3.25 MC/CUMM (3.8-5.5); Red Cell Distribution Width 16.6 % (9.3-17.3); White Blood Count 5.9 T/CUMM (4-12)
[2017-08-26 05:54] LABS: Calcium 8.1 MG/DL (8.5-10.1); Osmolality,Calculated 281.3 MOS/KG (273-304); Potassium 3.8 MMOL/L (3.5-5.1)
[2017-08-26] MEDS: SODIUM CHLORIDE 0.9% 1,000 ML IV SCH ×2 (06:32→12:26)
[2017-08-26] MEDS: INSULIN REGULAR 100 UNIT/ML SUBCUT SCH ×4 (09:25→21:39)
[2017-08-26] MEDS: DOCUSATE SODIUM 100 MG/10 ML UDCUP PO SCH ×2 (09:43→21:38)
[2017-08-26] MEDS: BISACODYL 10 MG SUPP RECTAL SCH ×2 (09:44→21:39)
[2017-08-26] MEDS: PANTOPRAZOLE 40 MG TABLET PO SCH ×2 (09:44→21:39)
[2017-08-26] MEDS: PREGABALIN 75 MG CAPSULE PO SCH ×2 (09:44→21:38)
[2017-08-26] MEDS: HYDROmorphone 2 MG/1 ML VIAL IV PRN ×2 (13:23→19:44)
[2017-08-26] MEDS: ZALEPLON 5 MG CAPSULE PO PRN (21:38)
[2017-08-27] MEDS: HYDROmorphone 2 MG/1 ML VIAL IV PRN ×4 (01:23→15:19)
[2017-08-27] MEDS: PIPERACILLIN/TAZOBACTAM 3,375 MG in SODIUM CHLORIDE 0.9% 100 ML IV SCH ×3 (01:25→17:43)
[2017-08-27] MEDS: HEPARIN 5,000 UNIT/1 ML VIAL SUBCUT SCH ×3 (03:35→21:38)
[2017-08-27 05:21] LABS: Basophils # 0.1 10*3/uL (0.0-0.2); Basophils % 1.3 % (0.0-0.8); Hematocrit 26.6 VOL% (42.0-52.0); Hemoglobin 8.2 GM/DL (14.0-18.0); Immature Granulocytes % 0.3 %; Immature Granulocytes Absolute 0.02 #; Lymphocytes # 1.6 10*3/uL (1.4-4.0); Lymphocytes % 26.8 % (21.2-54.2); Mean Corpuscular HGB Conc 30.8 GM/DL (32-36); Mean Corpuscular Hemoglobin 27 PG (27-34); Mean Corpuscular Volume 87.5 FL (87-102); Mean Platelet Volume 9.8 FL (9.6-12.0); Monocytes # 0.5 10*3/uL (0.11-0.8); Monocytes % 8.8 % (1.7-12.7); Neutrophils # 3.9 10*3/uL (1.4-7.4); Neutrophils % 62.8 % (38.7-73.9); Platelet Count 512 T/CUMM (130-400); Red Blood Count 3.04 MC/CUMM (3.8-5.5); Red Cell Distribution Width 16.7 % (9.3-17.3); White Blood Count 6.1 T/CUMM (4-12)
[2017-08-27 05:38] LABS: Calcium 8.2 MG/DL (8.5-10.1); Osmolality,Calculated 281.1 MOS/KG (273-304); Potassium 3.9 MMOL/L (3.5-5.1)
[2017-08-27 05:51] LABS: Giant Platelets Few; Hypochromasia 1+; Ovalocytes Slight; Platelet Estimate Increased
[2017-08-27] MEDS: SODIUM CHLORIDE 0.9% 1,000 ML IV SCH ×2 (06:36→21:08)
[2017-08-27] MEDS: INSULIN REGULAR 100 UNIT/ML SUBCUT SCH ×4 (07:30→21:45)
[2017-08-27] MEDS: DOCUSATE SODIUM 100 MG/10 ML UDCUP PO SCH ×2 (09:36→21:43)
[2017-08-27] MEDS: PANTOPRAZOLE 40 MG TABLET PO SCH ×2 (09:36→21:38)
[2017-08-27] MEDS: BISACODYL 10 MG SUPP RECTAL SCH ×2 (09:36→21:43)
[2017-08-27] MEDS: PREGABALIN 75 MG CAPSULE PO SCH ×2 (09:36→21:38)
[2017-08-28] MEDS: PIPERACILLIN/TAZOBACTAM 3,375 MG in SODIUM CHLORIDE 0.9% 100 ML IV SCH ×3 (01:12→16:58)
[2017-08-28] MEDS: HYDROmorphone 2 MG/1 ML VIAL IV PRN ×3 (03:22→18:28)
[2017-08-28] MEDS: HEPARIN 5,000 UNIT/1 ML VIAL SUBCUT SCH ×3 (03:24→18:29)
[2017-08-28] MEDS: SODIUM CHLORIDE 0.9% 1,000 ML IV SCH ×2 (04:00→16:58)
[2017-08-28] MEDS: INSULIN REGULAR 100 UNIT/ML SUBCUT SCH ×4 (09:14→21:13)
[2017-08-28] MEDS: DOCUSATE SODIUM 100 MG/10 ML UDCUP PO SCH ×2 (09:41→21:12)
[2017-08-28] MEDS: PANTOPRAZOLE 40 MG TABLET PO SCH ×2 (09:42→21:12)
[2017-08-28] MEDS: PREGABALIN 75 MG CAPSULE PO SCH ×2 (09:42→21:12)
[2017-08-28] MEDS: BISACODYL 10 MG SUPP RECTAL SCH ×2 (09:43→21:09)
[2017-08-28] MEDS ORDERED: GLUCAGON 1 MG VIAL IM PRN (10:31)
[2017-08-28] MEDS ORDERED: DEXTROSE 50% 25 GM/50 ML VIAL IV PRN (10:31)
[2017-08-28] MEDS: ZALEPLON 5 MG CAPSULE PO PRN (21:19)
[2017-08-29] MEDS: PIPERACILLIN/TAZOBACTAM 3,375 MG in SODIUM CHLORIDE 0.9% 100 ML IV SCH ×3 (01:03→17:59)
[2017-08-29] MEDS: HYDROmorphone 2 MG/1 ML VIAL IV PRN ×5 (02:32→20:57)
[2017-08-29] MEDS: HEPARIN 5,000 UNIT/1 ML VIAL SUBCUT SCH ×3 (02:35→19:21)
[2017-08-29] MEDS ORDERED: ACETAMINOPHEN 500 MG TABLET PO PRN (02:48)
[2017-08-29] MEDS: SODIUM CHLORIDE 0.9% 1,000 ML IV SCH (05:06)
[2017-08-29 06:56] LABS: Calcium 7.9 MG/DL (8.5-10.1)
[2017-08-29] MEDS: INSULIN REGULAR 100 UNIT/ML SUBCUT SCH ×4 (08:43→20:57)
[2017-08-29] MEDS: DOCUSATE SODIUM 100 MG/10 ML UDCUP PO SCH ×2 (11:29→20:57)
[2017-08-29] MEDS: BISACODYL 10 MG SUPP RECTAL SCH ×2 (11:29→20:58)
[2017-08-29] MEDS: PANTOPRAZOLE 40 MG TABLET PO SCH ×2 (11:29→20:57)
[2017-08-29] MEDS: PREGABALIN 75 MG CAPSULE PO SCH ×2 (11:29→20:57)
[2017-08-29] MEDS ORDERED: fentaNYL 100 MCG/2 ML VIAL ONE (14:07)
[2017-08-29] MEDS ORDERED: MIDAZOLAM 2 MG/2 ML VIAL ONE (14:07)
[2017-08-29] MEDS ORDERED: fentaNYL 100 MCG/2 ML VIAL IV ONE (14:43)
[2017-08-29] MEDS ORDERED: MIDAZOLAM 2 MG/2 ML VIAL IV ONE (14:43)
[2017-08-30] MEDS: PIPERACILLIN/TAZOBACTAM 3,375 MG in SODIUM CHLORIDE 0.9% 100 ML IV SCH ×3 (00:39→17:45)
[2017-08-30] MEDS: SODIUM CHLORIDE 0.9% 1,000 ML IV SCH ×3 (00:42→22:30)
[2017-08-30] MEDS: HEPARIN 5,000 UNIT/1 ML VIAL SUBCUT SCH ×3 (03:13→19:14)
[2017-08-30] MEDS: HYDROmorphone 2 MG/1 ML VIAL IV PRN ×5 (05:28→23:03)
[2017-08-30 05:45] LABS: Basophils # 0.1 10*3/uL (0.0-0.2); Basophils % 1.4 % (0.0-0.8); Hematocrit 25.9 VOL% (42.0-52.0); Hemoglobin 7.9 GM/DL (14.0-18.0); Immature Granulocytes % 0.4 %; Immature Granulocytes Absolute 0.02 #; Lymphocytes # 1.5 10*3/uL (1.4-4.0); Lymphocytes % 26.7 % (21.2-54.2); Mean Corpuscular HGB Conc 30.5 GM/DL (32-36); Mean Corpuscular Hemoglobin 27 PG (27-34); Mean Corpuscular Volume 89.9 FL (87-102); Mean Platelet Volume 9.9 FL (9.6-12.0); Monocytes # 0.5 10*3/uL (0.11-0.8); Monocytes % 8.1 % (1.7-12.7); Neutrophils # 3.5 10*3/uL (1.4-7.4); Neutrophils % 63.4 % (38.7-73.9); Platelet Count 462 T/CUMM (130-400); Red Blood Count 2.88 MC/CUMM (3.8-5.5); Red Cell Distribution Width 17.2 % (9.3-17.3); White Blood Count 5.6 T/CUMM (4-12)
[2017-08-30 06:21] LABS: Osmolality,Calculated 282.1 MOS/KG (273-304)
[2017-08-30] MEDS: INSULIN REGULAR 100 UNIT/ML SUBCUT SCH ×4 (08:06→20:07)
[2017-08-30] MEDS: BISACODYL 10 MG SUPP RECTAL SCH ×2 (09:05→20:07)
[2017-08-30] MEDS: DOCUSATE SODIUM 100 MG/10 ML UDCUP PO SCH ×2 (09:45→20:09)
[2017-08-30] MEDS: PREGABALIN 75 MG CAPSULE PO SCH ×2 (09:45→20:09)
[2017-08-30] MEDS: PANTOPRAZOLE 40 MG TABLET PO SCH ×2 (09:45→20:09)
[2017-08-30] MEDS: guaiFENesin 200 MG/10 ML UDCUP PO PRN (23:07)
[2017-08-31] MEDS: PIPERACILLIN/TAZOBACTAM 3,375 MG in SODIUM CHLORIDE 0.9% 100 ML IV SCH ×3 (00:46→17:29)
[2017-08-31] MEDS: HYDROmorphone 2 MG/1 ML VIAL IV PRN ×5 (03:07→22:02)
[2017-08-31] MEDS: HEPARIN 5,000 UNIT/1 ML VIAL SUBCUT SCH ×3 (03:07→18:19)
[2017-08-31 05:43] LABS: Calcium 7.9 MG/DL (8.5-10.1); Osmolality,Calculated 283.1 MOS/KG (273-304); Potassium 3.9 MMOL/L (3.5-5.1)
[2017-08-31] MEDS: INSULIN REGULAR 100 UNIT/ML SUBCUT SCH ×4 (08:14→22:01)
[2017-08-31] MEDS: DOCUSATE SODIUM 100 MG/10 ML UDCUP PO SCH ×2 (08:48→20:13)
[2017-08-31] MEDS: PREGABALIN 75 MG CAPSULE PO SCH ×2 (08:49→20:13)
[2017-08-31] MEDS: PANTOPRAZOLE 40 MG TABLET PO SCH ×2 (08:49→20:13)
[2017-08-31] MEDS: BISACODYL 10 MG SUPP RECTAL SCH ×2 (09:49→20:18)
[2017-08-31] MEDS: SODIUM CHLORIDE 0.9% 1,000 ML IV SCH ×2 (10:34→22:01)
[2017-08-31] MEDS: guaiFENesin 200 MG/10 ML UDCUP PO PRN (20:13)
[2017-09-01] MEDS: PIPERACILLIN/TAZOBACTAM 3,375 MG in SODIUM CHLORIDE 0.9% 100 ML IV SCH ×3 (01:50→18:48)
[2017-09-01] MEDS: HEPARIN 5,000 UNIT/1 ML VIAL SUBCUT SCH ×3 (02:15→18:48)
[2017-09-01] MEDS: HYDROmorphone 2 MG/1 ML VIAL IV PRN ×5 (02:15→20:33)
[2017-09-01 04:55] LABS: Calcium 8.3 MG/DL (8.5-10.1)
[2017-09-01 04:56] LABS: Osmolality,Calculated 279.4 MOS/KG (273-304); Potassium 3.9 MMOL/L (3.5-5.1)
[2017-09-01] MEDS: INSULIN REGULAR 100 UNIT/ML SUBCUT SCH ×3 (08:06→17:46)
[2017-09-01] MEDS: PANTOPRAZOLE 40 MG TABLET PO SCH ×2 (09:24→20:33)
[2017-09-01] MEDS: PREGABALIN 75 MG CAPSULE PO SCH ×2 (09:24→20:33)
[2017-09-01] MEDS: DOCUSATE SODIUM 100 MG/10 ML UDCUP PO SCH ×2 (09:26→20:33)
[2017-09-01] MEDS: BISACODYL 10 MG SUPP RECTAL SCH ×2 (09:26→20:33)
[2017-09-01] MEDS ORDERED: oxyCODONE/ACETAMINOPHEN 5-325 MG TABLET PO PRN (16:50)
[2017-09-01] MEDS: oxyCODONE/ACETAMINOPHEN 5-325 MG TABLET PO PRN ×2 (17:57→22:49)
[2017-09-02] MEDS: PIPERACILLIN/TAZOBACTAM 3,375 MG in SODIUM CHLORIDE 0.9% 100 ML IV SCH ×3 (01:20→20:16)
[2017-09-02] MEDS: HEPARIN 5,000 UNIT/1 ML VIAL SUBCUT SCH ×3 (03:54→20:16)
[2017-09-02 04:27] LABS: Calcium 8.5 MG/DL (8.5-10.1); Osmolality,Calculated 282.1 MOS/KG (273-304); Potassium 3.8 MMOL/L (3.5-5.1)
[2017-09-02] MEDS: HYDROmorphone 2 MG/1 ML VIAL IV PRN ×4 (08:01→21:08)
[2017-09-02 08:32] LABS: Basophils # 0.1 10*3/uL (0.0-0.2); Basophils % 1.3 % (0.0-0.8); Hematocrit 29.1 VOL% (42.0-52.0); Hemoglobin 8.7 GM/DL (14.0-18.0); Immature Granulocytes % 0.2 %; Immature Granulocytes Absolute 0.01 #; Lymphocytes # 1.7 10*3/uL (1.4-4.0); Lymphocytes % 31.8 % (21.2-54.2); Mean Corpuscular HGB Conc 29.9 GM/DL (32-36); Mean Corpuscular Hemoglobin 27 PG (27-34); Mean Corpuscular Volume 90.1 FL (87-102); Mean Platelet Volume 9.8 FL (9.6-12.0); Monocytes # 0.5 10*3/uL (0.11-0.8); Monocytes % 8.6 % (1.7-12.7); Neutrophils # 3.1 10*3/uL (1.4-7.4); Neutrophils % 58.1 % (38.7-73.9); Platelet Count 444 T/CUMM (130-400); Red Blood Count 3.23 MC/CUMM (3.8-5.5); Red Cell Distribution Width 17.5 % (9.3-17.3); White Blood Count 5.3 T/CUMM (4-12)
[2017-09-02 09:07] LABS: Alanine Aminotransferase < 9 U/L (16-61); Albumin 2.3 G/DL (3.4-5.0); Alkaline Phosphatase 77 U/L (45-117); Aspartate Amino Transferase 18 U/L (0-37); Blood Urea Nitrogen 11 MG/DL (7-18); Calcium 8.7 MG/DL (8.5-10.1); Glucose 98 MG/DL (74-106); Potassium 3.9 MMOL/L (3.5-5.1); Sodium 143 MMOL/L (136-145); Total Protein 6.4 G/DL (6.4-8.3)
[2017-09-02] MEDS: BISACODYL 10 MG SUPP RECTAL SCH ×2 (10:17→21:05)
[2017-09-02] MEDS: PREGABALIN 75 MG CAPSULE PO SCH ×2 (10:19→20:19)
[2017-09-02] MEDS: PANTOPRAZOLE 40 MG TABLET PO SCH ×2 (10:19→20:19)
[2017-09-02] MEDS: DOCUSATE SODIUM 100 MG/10 ML UDCUP PO SCH ×2 (10:21→21:05)
[2017-09-02] MEDS: oxyCODONE/ACETAMINOPHEN 5-325 MG TABLET PO PRN ×2 (18:47→23:54)
[2017-09-02] MEDS ORDERED: LORazepam 0.5 MG TABLET PO PRN ×2 (23:33→23:35)
[2017-09-02] MEDS: ZALEPLON 5 MG CAPSULE PO PRN (23:54)
[2017-09-03] MEDS: oxyCODONE/ACETAMINOPHEN 5-325 MG TABLET PO PRN (03:53)
[2017-09-03] MEDS: PIPERACILLIN/TAZOBACTAM 3,375 MG in SODIUM CHLORIDE 0.9% 100 ML IV SCH ×3 (03:54→20:51)
[2017-09-03 05:16] LABS: Basophils # 0.1 10*3/uL (0.0-0.2); Basophils % 1.1 % (0.0-0.8); Hematocrit 28.3 VOL% (42.0-52.0); Hemoglobin 8.7 GM/DL (14.0-18.0); Immature Granulocytes % 0.2 %; Immature Granulocytes Absolute 0.01 #; Lymphocytes # 1.7 10*3/uL (1.4-4.0); Lymphocytes % 32.1 % (21.2-54.2); Mean Corpuscular HGB Conc 30.7 GM/DL (32-36); Mean Corpuscular Hemoglobin 27 PG (27-34); Mean Corpuscular Volume 87.9 FL (87-102); Monocytes # 0.5 10*3/uL (0.11-0.8); Monocytes % 8.7 % (1.7-12.7); Neutrophils # 3.1 10*3/uL (1.4-7.4); Neutrophils % 57.9 % (38.7-73.9); Platelet Count 420 T/CUMM (130-400); Red Blood Count 3.22 MC/CUMM (3.8-5.5); Red Cell Distribution Width 17.6 % (9.3-17.3); White Blood Count 5.3 T/CUMM (4-12)
[2017-09-03] MEDS: HEPARIN 5,000 UNIT/1 ML VIAL SUBCUT SCH ×3 (05:56→20:57)
[2017-09-03] MEDS: HYDROmorphone 2 MG/1 ML VIAL IV PRN ×3 (06:05→20:49)
[2017-09-03 06:16] LABS: Albumin 2.5 G/DL (3.4-5.0); Bilirubin,Total 0.5 MG/DL (0.2-1.0); Calcium 8.4 MG/DL (8.5-10.1); Osmolality,Calculated 282.1 MOS/KG (273-304); Total Protein 6.6 G/DL (6.4-8.3)
[2017-09-03 07:18] LABS: Eosinophils 6 % (0-10); Hypochromasia 1+; Lymphocytes 32 % (20-55); Ovalocytes Slight; Platelet Estimate Increased; Segmented Neutrophils 50 % (50-85); Total Cells Counted 100
[2017-09-03] MEDS: DOCUSATE SODIUM 100 MG/10 ML UDCUP PO SCH ×2 (08:53→20:57)
[2017-09-03] MEDS: BISACODYL 10 MG SUPP RECTAL SCH ×2 (08:53→20:57)
[2017-09-03] MEDS: PREGABALIN 75 MG CAPSULE PO SCH ×2 (08:53→20:54)
[2017-09-03] MEDS: PANTOPRAZOLE 40 MG TABLET PO SCH ×2 (08:53→20:54)
[2017-09-03] MEDS ORDERED: tiZANidine 4 MG TABLET PO PRN (10:23)
[2017-09-03] MEDS: NYSTATIN 500,000 UNIT/5 ML UDCUP SWISH/SWAL SCH ×2 (16:32→20:52)
[2017-09-03] MEDS: ZALEPLON 5 MG CAPSULE PO PRN (20:54)
[2017-09-04] MEDS: HYDROmorphone 2 MG/1 ML VIAL IV PRN ×2 (04:05→10:07)
[2017-09-04] MEDS: HEPARIN 5,000 UNIT/1 ML VIAL SUBCUT SCH ×2 (04:07→13:19)
[2017-09-04] MEDS: PIPERACILLIN/TAZOBACTAM 3,375 MG in SODIUM CHLORIDE 0.9% 100 ML IV SCH ×2 (04:12→13:19)
[2017-09-04 05:44] LABS: Basophils # 0.1 10*3/uL (0.0-0.2); Basophils % 1.3 % (0.0-0.8); Hematocrit 27.5 VOL% (42.0-52.0); Hemoglobin 8.5 GM/DL (14.0-18.0); Immature Granulocytes % 0.2 %; Immature Granulocytes Absolute 0.01 #; Lymphocytes # 1.6 10*3/uL (1.4-4.0); Lymphocytes % 29.1 % (21.2-54.2); Mean Corpuscular HGB Conc 30.9 GM/DL (32-36); Mean Corpuscular Hemoglobin 27 PG (27-34); Mean Corpuscular Volume 88.7 FL (87-102); Mean Platelet Volume 10.2 FL (9.6-12.0); Monocytes # 0.5 10*3/uL (0.11-0.8); Neutrophils # 3.2 10*3/uL (1.4-7.4); Neutrophils % 60.4 % (38.7-73.9); Platelet Count 415 T/CUMM (130-400); Red Cell Distribution Width 17.7 % (9.3-17.3); White Blood Count 5.3 T/CUMM (4-12)
[2017-09-04 06:14] LABS: Calcium 8.4 MG/DL (8.5-10.1); Potassium 3.9 MMOL/L (3.5-5.1)
[2017-09-04] MEDS ORDERED: amLODIPine 5 MG TABLET PO SCH (09:00)
[2017-09-04] MEDS: DOCUSATE SODIUM 100 MG/10 ML UDCUP PO SCH (09:08)
[2017-09-04] MEDS: BISACODYL 10 MG SUPP RECTAL SCH (09:08)
[2017-09-04] MEDS: PANTOPRAZOLE 40 MG TABLET PO SCH (09:09)
[2017-09-04] MEDS: PREGABALIN 75 MG CAPSULE PO SCH (09:09)
[2017-09-04] MEDS: NYSTATIN 500,000 UNIT/5 ML UDCUP SWISH/SWAL SCH ×2 (09:09→13:19)
[2017-09-04 12:02] VITALS: BP 154/85
== END 2017-09-04 14:05 | disposition home or self-care (01) | DRG 372 ==
LOC: EDBD → EDUNIT# → N.ED 17:08 → N.EDINP 18:28 → SUATTDRO 18:28 → N.3E 20:02
PROVIDERS: ADMIT Hospitalist; ATTEND Internal Medicine

== ENCOUNTER 2017-09-12 23:34 | Inpatient (IN) ==
[2017-09-13] MEDS ORDERED: methylPREDNISolone SOD SUC 125 MG/2 ML VIAL IV STA (02:25)
[2017-09-13] MEDS ORDERED: MORPHINE 2 MG/1 ML SYRINGE IV STA ×2 (02:25→05:17)
[2017-09-13] MEDS ORDERED: ALBUTEROL/IPRATROPIUM 3 ML NEB RESP TX STA (02:25)
[2017-09-13] MEDS ORDERED: ONDANSETRON 4 MG/2 ML VIAL IV STA (02:25)
[2017-09-13] MEDS ORDERED: FUROSEMIDE 100 MG/10 ML VIAL IV STA (02:25)
[2017-09-13 02:50] LABS: Basophils # 0.1 10*3/uL (0.0-0.2); Basophils % 1.3 % (0.0-0.8); Hematocrit 32.9 VOL% (42.0-52.0); Immature Granulocytes % 0.4 %; Immature Granulocytes Absolute 0.02 #; Lymphocytes # 2.1 10*3/uL (1.4-4.0); Lymphocytes % 38.6 % (21.2-54.2); Mean Corpuscular HGB Conc 30.4 GM/DL (32-36); Mean Corpuscular Hemoglobin 27 PG (27-34); Mean Corpuscular Volume 89.4 FL (87-102); Mean Platelet Volume 10.1 FL (9.6-12.0); Monocytes # 0.5 10*3/uL (0.11-0.8); Monocytes % 8.2 % (1.7-12.7); Neutrophils # 2.9 10*3/uL (1.4-7.4); Neutrophils % 51.5 % (38.7-73.9); Platelet Count 422 T/CUMM (130-400); Red Blood Count 3.68 MC/CUMM (3.8-5.5); Red Cell Distribution Width 17.2 % (9.3-17.3); White Blood Count 5.5 T/CUMM (4-12)
[2017-09-13 02:59] LABS: PT Patient Result 10.5 SECS
[2017-09-13 03:20] LABS: Alanine Aminotransferase 14 U/L (16-61); Albumin 3.1 G/DL (3.4-5.0); Alkaline Phosphatase 240 U/L (45-117); Aspartate Amino Transferase 16 U/L (0-37); Bilirubin,Total < 0.39 MG/DL (0.2-1.0); Blood Urea Nitrogen 10 MG/DL (7-18); Calcium 8.5 MG/DL (8.5-10.1); Glucose 97 MG/DL (74-106); Osmolality,Calculated 273.7 MOS/KG (273-304); Potassium 4.2 MMOL/L (3.5-5.1); Sodium 138 MMOL/L (136-145); Total Protein 7.3 G/DL (6.4-8.3); Troponin I Only < 0.015 NG/ML (0.00-0.045)
[2017-09-13 03:31] LABS: Apearance,Urine CLEAR (Clear); Bacteria,Urine Occasional /HPF (Few); Bilirubin,Urine Negative (Negative); Blood, Urine Negative (Negative); Glucose,Urine (UA) Negative (Negative); Hyaline Casts,Urine 5 /LPF (0-3); Ketones,Urine Negative (Negative); Mucus,Urine Occasional /LPF (Occasional); Nitrite,Urine Negative (Negative); Protein,Urine Negative; RBC,Urine 1 /HPF (0-4); Squamous Epithelial Cell,Urine Occasional /HPF (0-10); Urine Color Yellow (Yellow); Urine Urobilinogen < 2.0 EU/DL (0.2-1.0); WBC,Urine 4 /HPF (0-6)
[2017-09-13] MEDS ORDERED: MORPHINE 2 MG/1 ML SYRINGE ONE (06:28)
[2017-09-13 07:59] LABS: Barbiturates Screen,Urine Negative (Negative); Benzodiazepines Screen,Urine Negative (Negative); Cannabinoid Screen,Urine Negative (Negative); Opiate Screen,Urine Positive (Negative); Phencyclidine Screen,Urine Negative (Negative)
[2017-09-13] MEDS ORDERED: CLINDAMYCIN INJ 600 MG in PREMIX 1 EACH IV SCH (08:01)
[2017-09-13] MEDS ORDERED: MORPHINE 10 MG/1 ML VIAL IV PRN (08:01)
[2017-09-13] MEDS ORDERED: GLUCAGON 1 MG VIAL IM PRN (08:01)
[2017-09-13] MEDS ORDERED: DEXTROSE 50% 25 GM/50 ML VIAL IV PRN (08:01)
[2017-09-13] MEDS ORDERED: NICOTINE 14 MG/24 HR PATCH TRANSDERM PRN (08:01)
[2017-09-13] MEDS ORDERED: ONDANSETRON 4 MG/2 ML VIAL IV PRN (08:01)
[2017-09-13] MEDS: LINEZOLID INJ 600 MG in PREMIX 1 EACH IV SCH ×2 (09:58→20:29)
[2017-09-13] MEDS: DOCUSATE SODIUM 100 MG CAPSULE PO SCH ×2 (10:03→22:01)
[2017-09-13] MEDS: SODIUM CHLORIDE 0.9% 1,000 ML IV SCH (10:03)
[2017-09-13] MEDS: PANTOPRAZOLE 40 MG TABLET PO SCH (10:03)
[2017-09-13] MEDS: metroNIDAZOLE INJ 500 MG in PREMIX 1 EACH IV SCH ×2 (12:03→17:48)
[2017-09-13] MEDS ORDERED: diphenhydrAMINE 50 MG/1 ML VIAL IV ONE (13:00)
[2017-09-13] MEDS: LORazepam 2 MG/1 ML VIAL IV PRN (16:33)
[2017-09-13] MEDS: CIPROFLOXACIN INJ 400 MG in PREMIX 1 EACH IV SCH (16:35)
[2017-09-13] MEDS ORDERED: MORPHINE 2 MG/1 ML SYRINGE IV SCH (18:00)
[2017-09-13] MEDS: MORPHINE 2 MG/1 ML SYRINGE IV PRN (22:07)
[2017-09-14] MEDS: LORazepam 2 MG/1 ML VIAL IV PRN ×2 (01:08→18:24)
[2017-09-14] MEDS: SODIUM CHLORIDE 0.9% 1,000 ML IV SCH ×3 (01:50→18:13)
[2017-09-14] MEDS: MORPHINE 2 MG/1 ML SYRINGE IV PRN ×5 (01:50→21:05)
[2017-09-14] MEDS: metroNIDAZOLE INJ 500 MG in PREMIX 1 EACH IV SCH ×3 (03:13→18:14)
[2017-09-14] MEDS: CIPROFLOXACIN INJ 400 MG in PREMIX 1 EACH IV SCH ×2 (06:12→17:07)
[2017-09-14 07:58] LABS: Basophils % 0.3 % (0.0-0.8); Hematocrit 31.7 VOL% (42.0-52.0); Hemoglobin 10.2 GM/DL (14.0-18.0); Immature Granulocytes % 0.3 %; Immature Granulocytes Absolute 0.01 #; Lymphocytes # 1.3 10*3/uL (1.4-4.0); Mean Corpuscular HGB Conc 32.2 GM/DL (32-36); Mean Corpuscular Hemoglobin 28 PG (27-34); Mean Corpuscular Volume 86.1 FL (87-102); Monocytes # 0.4 10*3/uL (0.11-0.8); Monocytes % 11.7 % (1.7-12.7); Neutrophils % 53.7 % (38.7-73.9); Platelet Count 423 T/CUMM (130-400); Red Blood Count 3.68 MC/CUMM (3.8-5.5); Red Cell Distribution Width 17.3 % (9.3-17.3); White Blood Count 3.8 T/CUMM (4-12)
[2017-09-14] MEDS: PANTOPRAZOLE 40 MG TABLET PO SCH (08:22)
[2017-09-14] MEDS: LINEZOLID INJ 600 MG in PREMIX 1 EACH IV SCH ×2 (08:22→21:09)
[2017-09-14] MEDS: DOCUSATE SODIUM 100 MG CAPSULE PO SCH ×2 (08:22→21:09)
[2017-09-14 08:25] LABS: Albumin 3.1 G/DL (3.4-5.0); Bilirubin,Total 0.5 MG/DL (0.2-1.0); Calcium 8.4 MG/DL (8.5-10.1); Osmolality,Calculated 276.5 MOS/KG (273-304); Total Protein 7.1 G/DL (6.4-8.3)
[2017-09-14] MEDS ORDERED: DIAZEPAM 5 MG TABLET PO ONE (09:17)
[2017-09-14] MEDS ORDERED: MIDAZOLAM 2 MG/2 ML VIAL IV ONE (09:17)
[2017-09-14] MEDS ORDERED: fentaNYL 100 MCG/2 ML VIAL IV ONE (09:27)
[2017-09-14] MEDS ORDERED: MIDAZOLAM 2 MG/2 ML VIAL ONE (10:17)
[2017-09-14] MEDS ORDERED: fentaNYL 100 MCG/2 ML VIAL ONE (10:32)
[2017-09-14] MEDS ORDERED: ZALEPLON 5 MG CAPSULE PO ONE (23:08)
[2017-09-15] MEDS: metroNIDAZOLE INJ 500 MG in PREMIX 1 EACH IV SCH ×2 (01:15→11:06)
[2017-09-15] MEDS: MORPHINE 2 MG/1 ML SYRINGE IV PRN ×2 (01:16→04:59)
[2017-09-15] MEDS: SODIUM CHLORIDE 0.9% 1,000 ML IV SCH (02:56)
[2017-09-15] MEDS: CIPROFLOXACIN INJ 400 MG in PREMIX 1 EACH IV SCH (04:44)
[2017-09-15 06:14] LABS: Basophils % 0.8 % (0.0-0.8); Eosinophils % 0.2 % (0.00-10.9); Hematocrit 33.2 VOL% (42.0-52.0); Hemoglobin 10.3 GM/DL (14.0-18.0); Immature Granulocytes % 0.4 %; Immature Granulocytes Absolute 0.02 #; Lymphocytes # 1.9 10*3/uL (1.4-4.0); Lymphocytes % 37.6 % (21.2-54.2); Mean Corpuscular Hemoglobin 27 PG (27-34); Mean Corpuscular Volume 87.1 FL (87-102); Mean Platelet Volume 11.2 FL (9.6-12.0); Monocytes # 0.4 10*3/uL (0.11-0.8); Monocytes % 8.5 % (1.7-12.7); Neutrophils # 2.6 10*3/uL (1.4-7.4); Neutrophils % 52.5 % (38.7-73.9); Platelet Count 302 T/CUMM (130-400); Red Blood Count 3.81 MC/CUMM (3.8-5.5); Red Cell Distribution Width 17.5 % (9.3-17.3)
[2017-09-15] MEDS: LORazepam 2 MG/1 ML VIAL IV PRN (06:22)
[2017-09-15 06:38] LABS: Anisocytosis 1+; Hypochromasia 1+; Microcytosis 1+; Target Cells Slight
[2017-09-15 06:39] LABS: Ovalocytes Slight; Polychromasia Slight
[2017-09-15 06:58] LABS: Albumin 2.9 G/DL (3.4-5.0); Bilirubin,Total 0.4 MG/DL (0.2-1.0); Calcium 8.6 MG/DL (8.5-10.1); Osmolality,Calculated 273.8 MOS/KG (273-304); Potassium 4.2 MMOL/L (3.5-5.1); Total Protein 6.7 G/DL (6.4-8.3)
[2017-09-15 07:53] VITALS: BP 152/81
[2017-09-15] MEDS: PANTOPRAZOLE 40 MG TABLET PO SCH (08:09)
[2017-09-15] MEDS: LINEZOLID INJ 600 MG in PREMIX 1 EACH IV SCH (08:09)
[2017-09-15] MEDS: DOCUSATE SODIUM 100 MG CAPSULE PO SCH (08:09)
== END 2017-09-15 11:04 | disposition home or self-care (01) | DRG 445 ==
LOC: N.ED 23:34 → N.EDINP 09-13 06:03 → SUATTDRO 09-13 06:03 → N.2E 09-13 06:45
PROVIDERS: ADMIT Internal Medicine; ATTEND Internal Medicine Cardiovascular Disease

== ENCOUNTER 2018-09-23 13:59 | Inpatient (IN) ==
[~2018-09-23 13:59] MED LIST: CLINDAMYCIN INJ 900 MG in PREMIX 1 EACH IV ONE
[2018-09-23] MEDS ORDERED: CLINDAMYCIN INJ 0 ML IV ONE (14:24)
[2018-09-23] MEDS ORDERED: CLINDAMYCIN INJ 50 ML IV ONE (14:26)
[2018-09-23] MEDS ORDERED: FAMOTIDINE 20 MG TABLET PO ONE (14:37)
[2018-09-23] MEDS ORDERED: FAMOTIDINE 20 MG TABLET ONE (14:38)
[2018-09-23] MEDS ORDERED: LIDOCAINE 1%/EPI INJ 20 ML VIAL ONE ×2 (14:39→14:40)
[2018-09-23] MEDS ORDERED: ALBUTEROL 1.25 MG/3 ML NEB RESP TX STA (14:44)
[2018-09-23] MEDS ORDERED: LACTATED RINGERS 1,000 ML IV SCH (15:00)
[2018-09-23 15:16] LABS: Calcium 8.7 MG/DL (8.5-10.1); Osmolality,Calculated 277.4 MOS/KG (273-304); Potassium 4.1 MMOL/L (3.5-5.1)
[2018-09-23] MEDS: HYDROmorphone 2 MG/1 ML VIAL IV PRN ×3 (16:44→16:56)
[2018-09-23] MEDS ORDERED: ONDANSETRON 4 MG/2 ML VIAL IV PRN ×2 (16:45→16:46)
[2018-09-23] MEDS ORDERED: ONDANSETRON 4 MG/2 ML VIAL ONE ×2 (16:45→18:33)
[2018-09-23] MEDS ORDERED: HYDROmorphone 2 MG/1 ML VIAL ONE (16:45)
[2018-09-23] MEDS ORDERED: ACETAMINOPHEN 325 MG TABLET PO PRN (16:46)
[2018-09-23] MEDS: MEPERIDINE 25 MG/1 ML VIAL IV PRN ×2 (17:14→17:27)
[2018-09-23] MEDS ORDERED: MEPERIDINE 25 MG/1 ML VIAL ONE ×2 (17:14→17:26)
[2018-09-23] MEDS ORDERED: hydrALAZINE 20 MG/1 ML VIAL ONE (17:14)
[2018-09-23] MEDS ORDERED: hydrALAZINE 20 MG/1 ML VIAL IV ONE (17:16)
[2018-09-23] MEDS: KETOROLAC 15 MG/1 ML VIAL IV SCH (18:23)
[2018-09-23] MEDS ORDERED: MIDAZOLAM 2 MG/2 ML VIAL ONE (18:33)
[2018-09-23] MEDS ORDERED: PROPOFOL 200 MG/20 ML VIAL IV ONE (18:33)
[2018-09-23] MEDS ORDERED: ACETAMINOPHEN 1,000 MG/100 ML VIAL IV ONE (18:33)
[2018-09-23] MEDS ORDERED: fentaNYL 100 MCG/2 ML VIAL ONE (18:33)
[2018-09-23] MEDS ORDERED: SEVOFLURANE 1 UNIT/15 MINUTE INH ONE (18:33)
[2018-09-23] MEDS ORDERED: LACTATED RINGERS 1,000 ML IV ONE (18:34)
[2018-09-23] MEDS ORDERED: SUCCINYLCHOLINE 200 MG/10 ML VIAL ONE (18:34)
[2018-09-23] MEDS: MORPHINE 4 MG/1 ML VIAL IV PRN (20:53)
[2018-09-23] MEDS: DOCUSATE SODIUM 100 MG CAPSULE PO SCH (21:00)
[2018-09-24] MEDS: KETOROLAC 15 MG/1 ML VIAL IV SCH ×3 (00:07→14:50)
[2018-09-24 05:22] LABS: Basophils % 0.2 % (0.0-0.8); Hematocrit 39.8 VOL% (42.0-52.0); Hemoglobin 12.7 GM/DL (14.0-18.0); Immature Granulocytes % 0.3 %; Immature Granulocytes Absolute 0.03 #; Lymphocytes # 0.8 10*3/uL (1.4-4.0); Lymphocytes % 7.9 % (21.2-54.2); Mean Corpuscular HGB Conc 31.9 GM/DL (32-36); Mean Corpuscular Hemoglobin 32 PG (27-34); Mean Corpuscular Volume 99.5 FL (87-102); Mean Platelet Volume 10.1 FL (9.6-12.0); Monocytes # 0.8 10*3/uL (0.11-0.8); Monocytes % 7.3 % (1.7-12.7); Neutrophils # 8.6 10*3/uL (1.4-7.4); Neutrophils % 84.3 % (38.7-73.9); Platelet Count 295 T/CUMM (130-400); White Blood Count 10.3 T/CUMM (4-12)
[2018-09-24] MEDS ORDERED: traMADol 50 MG TABLET PO PRN (08:30)
[2018-09-24] MEDS ORDERED: LORazepam 0.5 MG TABLET PO PRN (08:30)
[2018-09-24] MEDS: DOCUSATE SODIUM 100 MG CAPSULE PO SCH (08:46)
[2018-09-24] MEDS ORDERED: FEXOFENADINE 180 MG TABLET PO SCH (09:00)
[2018-09-24] MEDS ORDERED: ATORVASTATIN 40 MG TABLET PO SCH (09:00)
[2018-09-24] MEDS ORDERED: GABAPENTIN 300 MG CAPSULE PO SCH (09:00)
[2018-09-24] MEDS ORDERED: PANTOPRAZOLE 40 MG TABLET PO SCH (09:00)
[2018-09-24] MEDS ORDERED: predniSONE 20 MG TABLET PO SCH (09:00)
[2018-09-24] MEDS ORDERED: amLODIPine 10 MG TABLET PO SCH (09:00)
[2018-09-24] MEDS: MORPHINE 4 MG/1 ML VIAL IV PRN (10:46)
[2018-09-24] MEDS ORDERED: CHLORHEXIDINE 4% SOLN 118 ML BOTTLE TOP SCH (12:00)
[2018-09-24] MEDS ORDERED: SODIUM HYPOCHLORITE 0.25% IRRIG 473 ML BOTTLE TOP SCH (12:00)
[2018-09-24 12:03] VITALS: BP 155/78
== END 2018-09-24 13:25 | disposition home health service (06) | DRG 909 ==
LOC: N.OR 13:59 → N.SDSINP 14:09 → N.3E 17:48 → N.OR 09-24 13:25 → N.3E 09-25 07:09
PROVIDERS: ADMIT Surgery; ATTEND Surgery

== ENCOUNTER 2019-01-24 20:55 | Inpatient (IN) ==
[2019-01-24] MEDS ORDERED: KETOROLAC 30 MG/1 ML VIAL IV STA (21:51)
[2019-01-24 22:17] LABS: Basophils # 0.1 10*3/uL (0.0-0.2); Basophils % 0.4 % (0.0-0.8); Hematocrit 44.8 VOL% (42.0-52.0); Hemoglobin 14.7 GM/DL (14.0-18.0); Immature Granulocytes % 0.8 %; Immature Granulocytes Absolute 0.12 #; Lymphocytes # 1.1 10*3/uL (1.4-4.0); Lymphocytes % 7.1 % (21.2-54.2); Mean Corpuscular HGB Conc 32.8 GM/DL (32-36); Mean Corpuscular Volume 94.1 FL (87-102); Monocytes % 10.3 % (1.7-12.7); Neutrophils % 81.4 % (38.7-73.9); Platelet Count 339 T/CUMM (130-400); Red Blood Count 4.76 MC/CUMM (3.8-5.5); Red Cell Distribution Width 14.6 % (9.3-17.3)
[2019-01-24 22:36] LABS: Albumin 2.7 G/DL (3.4-5.0); Bilirubin,Total 0.6 MG/DL (0.2-1.0); Osmolality,Calculated 264.4 MOS/KG (273-304)
[2019-01-25] MEDS ORDERED: MORPHINE 4 MG/1 ML VIAL IV STA (00:08)
[2019-01-25] MEDS ORDERED: PIPERACILLIN/TAZOBACTAM 3,375 MG in SODIUM CHLORIDE 0.9% 100 ML IV STA ×2 (00:08→00:10)
[2019-01-25] MEDS ORDERED: ONDANSETRON 4 MG/2 ML VIAL IV PRN ×2 (00:13→11:07)
[2019-01-25] MEDS: DEXTROSE 5% NACL 0.45% 1,000 ML IV SCH ×3 (02:48→18:08)
[2019-01-25] MEDS: MORPHINE 4 MG/1 ML VIAL IV PRN ×4 (04:34→20:04)
[2019-01-25 05:41] LABS: Basophils % 0.3 % (0.0-0.8); Eosinophils % 0.1 % (0.00-10.9); Hematocrit 42.8 VOL% (42.0-52.0); Hemoglobin 14.2 GM/DL (14.0-18.0); Immature Granulocytes % 0.6 %; Immature Granulocytes Absolute 0.09 #; Lymphocytes # 0.7 10*3/uL (1.4-4.0); Lymphocytes % 4.8 % (21.2-54.2); Mean Corpuscular HGB Conc 33.2 GM/DL (32-36); Mean Corpuscular Volume 94.3 FL (87-102); Mean Platelet Volume 10.1 FL (9.6-12.0); Monocytes % 8.8 % (1.7-12.7); Neutrophils % 85.4 % (38.7-73.9); Platelet Count 304 T/CUMM (130-400); Red Blood Count 4.54 MC/CUMM (3.8-5.5); Red Cell Distribution Width 14.4 % (9.3-17.3); White Blood Count 14.5 T/CUMM (4-12)
[2019-01-25 06:02] LABS: Albumin 2.5 G/DL (3.4-5.0); Bilirubin,Total 0.7 MG/DL (0.2-1.0); Calcium 8.5 MG/DL (8.5-10.1); Osmolality,Calculated 270.2 MOS/KG (273-304); Total Protein 6.6 G/DL (6.4-8.3)
[2019-01-25 06:41] LABS: Band Neutrophils 14 % (0-10); Eosinophils 1 % (0-10); Lymphocytes 7 % (20-55); Platelet Estimate Normal; Segmented Neutrophils 64 % (50-85); Total Cells Counted 100
[2019-01-25 06:42] LABS: Anisocytosis 1+
[2019-01-25] MEDS ORDERED: ceFAZolin 1,000 MG in SYRINGE 1 EACH IV ONE (08:19)
[2019-01-25] MEDS ORDERED: FAMOTIDINE 20 MG/2 ML VIAL IV ONE (09:09)
[2019-01-25] MEDS ORDERED: ALBUTEROL/IPRATROPIUM 3 ML NEB RESP TX ONE (09:11)
[2019-01-25] MEDS: PIPERACILLIN/TAZOBACTAM 3,375 MG in SODIUM CHLORIDE 0.9% 100 ML IV SCH ×2 (09:31→20:07)
[2019-01-25] MEDS: PANTOPRAZOLE 40 MG VIAL IV SCH (09:35)
[2019-01-25] MEDS ORDERED: BUPIVACAINE MPF 0.25% /EPI 30 ML VIAL ONE (09:43)
[2019-01-25] MEDS ORDERED: LIDOCAINE 1% 20 ML VIAL ONE (09:44)
[2019-01-25] MEDS ORDERED: SUGAMMADEX 200 MG/2 ML VIAL IV ONE (10:27)
[2019-01-25] MEDS ORDERED: HYDROmorphone 2 MG/1 ML VIAL ONE (10:38)
[2019-01-25] MEDS ORDERED: ONDANSETRON 4 MG/2 ML VIAL ONE (10:46)
[2019-01-25] MEDS ORDERED: PROPOFOL 200 MG/20 ML VIAL IV ONE (10:46)
[2019-01-25] MEDS ORDERED: MIDAZOLAM 2 MG/2 ML VIAL ONE (10:46)
[2019-01-25] MEDS ORDERED: SEVOFLURANE 1 UNIT/15 MINUTE INH ONE (10:46)
[2019-01-25] MEDS ORDERED: fentaNYL 100 MCG/2 ML VIAL ONE (10:46)
[2019-01-25] MEDS ORDERED: LACTATED RINGERS 1,000 ML IV ONE (10:47)
[2019-01-25] MEDS ORDERED: ROCURONIUM 100 MG/10 ML VIAL IV ONE (10:47)
[2019-01-25] MEDS ORDERED: SUCCINYLCHOLINE 200 MG/10 ML VIAL ONE (10:47)
[2019-01-25] MEDS ORDERED: HYDROmorphone 2 MG/1 ML VIAL IV PRN (11:07)
[2019-01-25] MEDS: VANCOMYCIN INJ 2,000 MG in SODIUM CHLORIDE 0.9% 500 ML IV SCH (15:20)
[2019-01-25] MEDS ORDERED: ACETAMINOPHEN 325 MG TABLET PO PRN (16:00)
[2019-01-25] MEDS: KETOROLAC 15 MG/1 ML VIAL IV PRN (18:30)
[2019-01-26] MEDS: DEXTROSE 5% NACL 0.45% 1,000 ML IV SCH ×3 (00:30→15:31)
[2019-01-26] MEDS: MORPHINE 4 MG/1 ML VIAL IV PRN ×4 (01:47→19:56)
[2019-01-26] MEDS ORDERED: IBUPROFEN 400 MG TABLET PO PRN (06:23)
[2019-01-26] MEDS: PANTOPRAZOLE 40 MG VIAL IV SCH (08:23)
[2019-01-26] MEDS: VANCOMYCIN INJ 2,000 MG in SODIUM CHLORIDE 0.9% 500 ML IV SCH ×2 (08:23→20:59)
[2019-01-26] MEDS: KETOROLAC 15 MG/1 ML VIAL IV PRN ×2 (10:33→17:32)
[2019-01-26] MEDS: PIPERACILLIN/TAZOBACTAM 3,375 MG in SODIUM CHLORIDE 0.9% 100 ML IV SCH ×2 (10:33→17:31)
[2019-01-27] MEDS: MORPHINE 4 MG/1 ML VIAL IV PRN ×2 (01:34→06:21)
[2019-01-27] MEDS: PIPERACILLIN/TAZOBACTAM 3,375 MG in SODIUM CHLORIDE 0.9% 100 ML IV SCH ×2 (01:35→09:36)
[2019-01-27] MEDS: DEXTROSE 5% NACL 0.45% 1,000 ML IV SCH ×2 (01:42→08:30)
[2019-01-27 05:34] LABS: Basophils # 0.1 10*3/uL (0.0-0.2); Basophils % 0.7 % (0.0-0.8); Eosinophils % 0.4 % (0.00-10.9); Hematocrit 37.1 VOL% (42.0-52.0); Hemoglobin 12.3 GM/DL (14.0-18.0); Immature Granulocytes % 0.9 %; Immature Granulocytes Absolute 0.07 #; Lymphocytes # 1.3 10*3/uL (1.4-4.0); Lymphocytes % 17.9 % (21.2-54.2); Mean Corpuscular HGB Conc 33.2 GM/DL (32-36); Mean Corpuscular Volume 94.6 FL (87-102); Mean Platelet Volume 10.4 FL (9.6-12.0); Monocytes % 12.3 % (1.7-12.7); Neutrophils % 67.8 % (38.7-73.9); Platelet Count 290 T/CUMM (130-400); Red Blood Count 3.92 MC/CUMM (3.8-5.5); Red Cell Distribution Width 14.6 % (9.3-17.3); White Blood Count 7.4 T/CUMM (4-12)
[2019-01-27] MEDS ORDERED: MORPHINE 4 MG/1 ML VIAL IV ONE (08:51)
[2019-01-27] MEDS: PANTOPRAZOLE 40 MG VIAL IV SCH (09:36)
[2019-01-27] MEDS: VANCOMYCIN INJ 2,000 MG in SODIUM CHLORIDE 0.9% 500 ML IV SCH (09:37)
[2019-01-27 11:35] VITALS: BP 144/74
== END 2019-01-27 12:10 | disposition home health service (06) | DRG 902 ==
LOC: N.ED 20:55 → N.EDINP 20:55 → N.3E 01-25 00:35
PROVIDERS: ADMIT Student in an Organized Health Care Education/Training Program; ATTEND Student in an Organized Health Care Education/Training Program

== ENCOUNTER 2019-02-11 11:56 | Observation (INO) ==
[2019-02-11] MEDS: MORPHINE 4 MG/1 ML VIAL IV PRN ×2 (14:28→21:17)
[2019-02-11 14:54] LABS: Basophils # 0.1 10*3/uL (0.0-0.2); Basophils % 1.2 % (0.0-0.8); Hematocrit 37.8 VOL% (42.0-52.0); Hemoglobin 11.9 GM/DL (14.0-18.0); Immature Granulocytes % 0.4 %; Immature Granulocytes Absolute 0.04 #; Lymphocytes # 1.8 10*3/uL (1.4-4.0); Lymphocytes % 18.7 % (21.2-54.2); Mean Corpuscular HGB Conc 31.5 GM/DL (32-36); Mean Corpuscular Volume 95.2 FL (87-102); Mean Platelet Volume 9.6 FL (9.6-12.0); Monocytes % 8.2 % (1.7-12.7); Neutrophils % 71.5 % (38.7-73.9); Platelet Count 489 T/CUMM (130-400); Red Blood Count 3.97 MC/CUMM (3.8-5.5); Red Cell Distribution Width 14.6 % (9.3-17.3); White Blood Count 9.4 T/CUMM (4-12)
[2019-02-11 15:11] LABS: Osmolality,Calculated 269.2 MOS/KG (273-304)
[2019-02-11] MEDS ORDERED: ALBUTEROL/IPRATROPIUM 3 ML NEB RESP TX PRN (15:49)
[2019-02-11] MEDS ORDERED: ACETAMINOPHEN 325 MG TABLET PO PRN (15:49)
[2019-02-11] MEDS ORDERED: KETOROLAC 10 MG TABLET PO PRN (15:49)
[2019-02-11] MEDS ORDERED: ONDANSETRON 4 MG/2 ML VIAL IV PRN (15:49)
[2019-02-11] MEDS ORDERED: oxyCODONE/ACETAMINOPHEN 5-325 MG TABLET PO PRN (15:49)
[2019-02-11] MEDS: LACTATED RINGERS 1,000 ML IV SCH (17:01)
[2019-02-11] MEDS: POLYETHYLENE GLYCOL POWDER 17 GM PACK PO SCH (17:02)
[2019-02-11] MEDS: oxyCODONE/ACETAMINOPHEN 5-325 MG TABLET PO PRN (17:05)
[2019-02-11] MEDS: GABAPENTIN 300 MG CAPSULE PO SCH (21:07)
[2019-02-12] MEDS: LACTATED RINGERS 1,000 ML IV SCH (02:21)
[2019-02-12] MEDS: oxyCODONE/ACETAMINOPHEN 5-325 MG TABLET PO PRN (02:26)
[2019-02-12] MEDS: GABAPENTIN 300 MG CAPSULE PO SCH (08:08)
[2019-02-12] MEDS: POLYETHYLENE GLYCOL POWDER 17 GM PACK PO SCH (08:11)
[2019-02-12] MEDS ORDERED: PANTOPRAZOLE 40 MG TABLET PO SCH (09:00)
[2019-02-12] MEDS ORDERED: amLODIPine 10 MG TABLET PO SCH (09:00)
[2019-02-12] MEDS ORDERED: ATORVASTATIN 40 MG TABLET PO SCH (09:00)
[2019-02-12 09:09] VITALS: BP 151/92
[2019-02-12] MEDS: MORPHINE 4 MG/1 ML VIAL IV PRN (09:23)
== END 2019-02-12 11:15 | disposition home health service (06) ==
LOC: N.5E 11:56 → N.CT 11:56
PROVIDERS: ADMIT Surgery; ATTEND Surgery

== ENCOUNTER 2019-03-11 10:24 | Inpatient (IN) ==
[2019-03-11 12:51] LABS: Basophils # 0.1 10*3/uL (0.0-0.2); Basophils % 0.6 % (0.0-0.8); Hematocrit 38.6 VOL% (42.0-52.0); Hemoglobin 12.5 GM/DL (14.0-18.0); Immature Granulocytes % 0.2 %; Immature Granulocytes Absolute 0.02 #; Lymphocytes # 1.6 10*3/uL (1.4-4.0); Lymphocytes % 18.5 % (21.2-54.2); Mean Corpuscular HGB Conc 32.4 GM/DL (32-36); Mean Corpuscular Volume 93.7 FL (87-102); Mean Platelet Volume 9.6 FL (9.6-12.0); Monocytes % 6.1 % (1.7-12.7); Neutrophils % 74.6 % (38.7-73.9); Platelet Count 424 T/CUMM (130-400); Red Blood Count 4.12 MC/CUMM (3.8-5.5); Red Cell Distribution Width 16.3 % (9.3-17.3); White Blood Count 8.9 T/CUMM (4-12)
[2019-03-11] MEDS ORDERED: MORPHINE 4 MG/1 ML VIAL IV PRN (13:21)
[2019-03-11 13:27] LABS: Albumin 2.9 G/DL (3.4-5.0); Bilirubin,Total 0.5 MG/DL (0.2-1.0); Osmolality,Calculated 273.7 MOS/KG (273-304); Total Protein 7.4 G/DL (6.4-8.3)
[2019-03-11] MEDS: CIPROFLOXACIN INJ 400 MG in PREMIX 1 EACH IV SCH (13:38)
[2019-03-11] MEDS ORDERED: BISACODYL 5 MG TABLET PO PRN (14:33)
[2019-03-11] MEDS ORDERED: ONDANSETRON 4 MG/2 ML VIAL IV PRN (14:33)
[2019-03-11] MEDS ORDERED: ACETAMINOPHEN 325 MG TABLET PO PRN (14:33)
[2019-03-11] MEDS ORDERED: oxyCODONE/ACETAMINOPHEN 5-325 MG TABLET PO PRN (14:42)
[2019-03-11] MEDS: LACTATED RINGERS 1,000 ML IV SCH (15:48)
[2019-03-11] MEDS ORDERED: KETOROLAC 30 MG/1 ML VIAL IV ONE (16:16)
[2019-03-11] MEDS: KETOROLAC 15 MG/1 ML VIAL IV SCH (19:32)
[2019-03-11] MEDS: GABAPENTIN 300 MG CAPSULE PO SCH (20:20)
[2019-03-11] MEDS: oxyCODONE/ACETAMINOPHEN 5-325 MG TABLET PO SCH (20:21)
[2019-03-12] MEDS: KETOROLAC 15 MG/1 ML VIAL IV SCH ×4 (01:31→21:57)
[2019-03-12] MEDS: CIPROFLOXACIN INJ 400 MG in PREMIX 1 EACH IV SCH ×2 (01:36→13:29)
[2019-03-12] MEDS: HYDROmorphone 2 MG/1 ML VIAL IV PRN ×4 (01:42→12:20)
[2019-03-12] MEDS: LACTATED RINGERS 1,000 ML IV SCH ×2 (05:06→13:30)
[2019-03-12] MEDS: PANTOPRAZOLE 40 MG TABLET PO SCH (08:28)
[2019-03-12] MEDS: GABAPENTIN 300 MG CAPSULE PO SCH ×2 (08:28→20:57)
[2019-03-12] MEDS: ATORVASTATIN 40 MG TABLET PO SCH (08:28)
[2019-03-12] MEDS: amLODIPine 10 MG TABLET PO SCH (08:32)
[2019-03-12] MEDS: oxyCODONE/ACETAMINOPHEN 5-325 MG TABLET PO SCH ×3 (08:32→20:57)
[2019-03-12] MEDS ORDERED: SEVOFLURANE 1 UNIT/15 MINUTE INH ONE (11:55)
[2019-03-12] MEDS ORDERED: PROPOFOL 200 MG/20 ML VIAL IV ONE (11:55)
[2019-03-12] MEDS ORDERED: fentaNYL 100 MCG/2 ML VIAL ONE (11:55)
[2019-03-12] MEDS ORDERED: LIDOCAINE 100 MG/5 ML SYRINGE ONE (11:55)
[2019-03-12] MEDS ORDERED: ROCURONIUM 100 MG/10 ML VIAL IV ONE (11:56)
[2019-03-12] MEDS ORDERED: SUCCINYLCHOLINE 200 MG/10 ML VIAL ONE (11:56)
[2019-03-12] MEDS ORDERED: ONDANSETRON 4 MG/2 ML VIAL IV PRN (12:08)
[2019-03-12] MEDS ORDERED: ALBUTEROL/IPRATROPIUM 3 ML NEB RESP TX ONE ×2 (12:09→12:11)
[2019-03-12] MEDS ORDERED: HYDROmorphone 2 MG/1 ML VIAL ONE (12:10)
[2019-03-12] MEDS ORDERED: ONDANSETRON 4 MG/2 ML VIAL ONE (12:11)
[2019-03-12] MEDS: IBUPROFEN 400 MG TABLET PO PRN (19:40)
[2019-03-13] MEDS: CIPROFLOXACIN INJ 400 MG in PREMIX 1 EACH IV SCH (00:28)
[2019-03-13] MEDS: IBUPROFEN 400 MG TABLET PO PRN (00:38)
[2019-03-13] MEDS ORDERED: diphenhydrAMINE CAP 25 MG CAPSULE PO ONE (01:11)
[2019-03-13] MEDS: KETOROLAC 10 MG TABLET PO SCH ×2 (03:38→09:23)
[2019-03-13] MEDS: LACTATED RINGERS 1,000 ML IV SCH (07:10)
[2019-03-13] MEDS: ATORVASTATIN 40 MG TABLET PO SCH (08:28)
[2019-03-13] MEDS: GABAPENTIN 300 MG CAPSULE PO SCH (08:28)
[2019-03-13] MEDS: PANTOPRAZOLE 40 MG TABLET PO SCH (08:28)
[2019-03-13] MEDS: oxyCODONE/ACETAMINOPHEN 5-325 MG TABLET PO SCH (08:28)
[2019-03-13] MEDS: amLODIPine 10 MG TABLET PO SCH (08:28)
[2019-03-13 11:25] VITALS: BP 110/73
== END 2019-03-13 11:55 | disposition home health service (06) | DRG 858 ==
LOC: N.3E
PROVIDERS: ADMIT Surgery; ATTEND Surgery